=== PATIENT | female | born 1960 | race Caucasian/White ===

== ENCOUNTER 2018-03-02 15:54 | Emergency (ER) | payer MEDICARE, OTHER ==
[~2018-03-02] VITALS: Ht 157.5 cm; Wt 79.4 kg
--- NOTE | 2018-03-02 16:10 | ED Lower Extremity ---
General Chief Complaint: Lower Extremity Stated Complaint: R ANKLE PAIN Source: patient Exam Limitations: no limitations History of Present Illness Date Seen by Provider: Mar 02, 2018 Time Seen by Provider: 16:10 Initial Comments Patient is a 57-year-old female who presents to the emergency room with complaints of right ankle pain. She reports that she cannot recall an injury but does state that she was doing exercises for plantar fasciitis last night when she woke this morning the ankle was painful to walk on. She reports taking prescribed oxycodone that she has for pancreatitis flareups for the pain with moderate relief. Onset: this morning Pain/Injury Location: right ankle Method of Injury: unknown Modifying Factors: Improves With Cold Therapy, Improves With Immobilization; Worse With Jarring, Worse With Movement; Improves With Pain Medication, Improves With Rest Allergies and Home Medications Allergies Coded Allergies: No Known Drug Allergies (Unverified , 03/02/18) Patient Home Medication List Home Medication List Reviewed: Yes Constitutional: see HPI; No chills EENTM: see HPI; No ear discharge, No hearing loss, No blurred vision Respiratory: see HPI; No cough, No dyspnea on exertion Cardiovascular: see HPI; No chest pain Gastrointestinal: see HPI; No abdominal pain Genitourinary: see HPI; No decreased output, No discharge Musculoskeletal: joint pain, joint swelling (right ankle) Skin: see HPI; No change in color Psychiatric/Neurological: See HPI; Denies Anxiety All Other Systems Reviewed Negative Unless Noted: Yes Past Pxbpwos-Arrdfb-Cpnfmt Hx Past Med/Social Hx: Reviewed Nursing Past Med/Soc Hx Patient Social History Recent Foreign Travel: No Contact w/Someone Who Travel: No Family Medical History Reviewed Nursing Family Hx Physical Exam Vital Signs Vital Signs - First Documented 03/02/18 15:57 Temp 97.6 Pulse 84 Resp 14 B/P (MAP) 134/76 (95) O2 Delivery Room Air Capillary Refill : General Appearance: WD/WN, no apparent distress HEENT: PERRL/EOMI, normal ENT inspection, TMs normal Neck: full range of motion, supple, normal inspection Cardiovascular: regular rate, rhythm, no edema, no gallop, no JVD Respiratory: chest non-tender, lungs clear, normal breath sounds Gastrointestinal: normal bowel sounds, non tender, soft Back: normal inspection, no CVA tenderness, no vertebral tenderness Hips: bilateral hip non-tender, bilateral hip normal inspection, bilateral hip normal range of motion, bilateral hip no evidence of injury Legs: bilateral leg non-tender, bilateral leg normal inspection, bilateral leg normal range of motion, bilateral leg no evidence of injury Knees: bilateral knee non-tender, bilateral knee normal inspection, bilateral knee normal range of motion, bilateral knee no evidence of injury Ankles: left ankle non-tender, left ankle normal inspection, left ankle normal range of motion, left ankle no evidence of injury; right ankle pain, right ankle soft tissue tenderness, right ankle swelling, right ankle other (normal capillary refill, normal sensation, increased pain with extension and flexion.) Feet: bilateral foot non-tender, bilateral foot normal inspection, bilateral foot normal range of motion, bilateral foot no evidence of injury Neurologic/Tendon: normal sensation, normal motor functions, normal tendon functions, responds to pain, no evidence tendon injury; No motor deficit, No sensory deficit Neurologic/Psychiatric: alert, normal mood/affect, oriented x 3 Skin: normal color, warm/dry Lymphatic: no adenopathy Progress/Results/Core Measures Results/Orders Vital Signs/I&O 03/02/18 15:57 Temp 97.6 Pulse 84 Resp 14 B/P (MAP) 134/76 (95) O2 Delivery Room Air Diagnostic Imaging Diagonstic Imaging: Xray Plain Films/CT/US/NM/MRI: ankle Comments NAME: MOSES ZUNIGA MED REC#: [id number] PT STATUS: REG ER : 1960 PHYSICIAN: TIANNA NIELSEN MD ADMIT DATE: 03/02/18/ER Draft Date of Exam:03/02/18 ANKLE, RIGHT, 3 VIEWS Indication: Right ankle injury with pain and swelling. Discussion: Three views of the right ankle were obtained. The ankle mortise is symmetric. Small plantar calcaneal enthesophyte. No fracture or dislocation. Soft tissues are unremarkable. Impression: Negative right ankle. Dictated on workstation # [id number] Dict: 03/02/18 1618 Trans: 03/02/18 1620 [facility] [id number] Interpreted by: DIMITRI GREEN MD Electronically signed by: Time of Consult: 16:29 Departure Impression Primary Impression: Sprain and strain of ankle Additional Impression: Sprain and strain of foot Disposition: 01 HOME, SELF-CARE Condition: Stable/Unchanged Departure-Patient Inst. Decision time for Depature: 16:43 Referrals: ALYSSA PACK MD, JOSEPH M DO Patient Instructions: Ankle Sprain (DC) Add. Discharge Instructions: Continue you home pain medication and you may use ibuprofen in addition to. Continue to use ice packs, crutches, sujatha bandage, and the air stirrup as needed for support and pain relief. Follow-up with your primary care provider or [facility] within 1 week. Call tomorrow morning for appointment time. Return back to the emergency room for increased pain, numbness or tingling sensation in the foot, or any other concerns as needed. All discharge instructions reviewed with patient and/or family. Voiced understanding. YVES FROST STUDENT Mar 02, 2018 16:10
--- NOTE | 2018-03-02 16:20 | Diagnostic Imaging Report ---
Indication: Right ankle injury with pain and swelling. Discussion: Three views of the right ankle were obtained. The ankle mortise is symmetric. Small plantar calcaneal enthesophyte. No fracture or dislocation. Soft tissues are unremarkable. Impression: Negative right ankle. Dictated by: Dictated on workstation # [id number]
[2018-03-02 16:57] VITALS: BP 134/76
== END 2018-03-02 16:57 | disposition home or self-care (01) ==
LOC: EDUNIT# 15:54 → ER 15:55
DX: S93.401A Sprain of unspecified ligament of right ankle, initial encounter (principal); S93.601A Unspecified sprain of right foot, initial encounter; X58.XXXA Exposure to other specified factors, initial encounter
CPT/HCPCS: 73610

== ENCOUNTER 2018-11-01 17:14 | Emergency (ER) | payer MEDICARE, OTHER ==
[~2018-11-01] VITALS: Ht 157.5 cm; Wt 89.8 kg
--- NOTE | 2018-11-01 17:42 | ED Chest Pain ---
General Chief Complaint: Chest Pain Stated Complaint: CHEST PAIN/TIGHTNESS/SOB Source: patient Exam Limitations: no limitations History of Present Illness Date Seen by Provider: Nov 01, 2018 Time Seen by Provider: 17:39 Initial Comments 58-year-old female who presents to the emergency room with complaints of chest pain, chest tightness, and shortness of breath that started yesterday around 1700. She was seen and evaluated at [facility] [place]. She reports that she had the diagnosis of bronchitis and pleurisy and was put on steroids and antibiotics. She denies lightheadedness, nausea, vomiting. Timing/Duration: 1-2 days Severity/Quality: tightness Location: substernal Radiation: shoulders (left) Prior CP/Workup: no prior cardiac workup ASA po HOTEL RESERVATION AGENT: No NTG SL HOTEL RESERVATION AGENT: No Associated Symptoms: shortness of breath Allergies and Home Medications Allergies Coded Allergies: No Known Drug Allergies (Unverified , 03/02/18) Patient Home Medication List Home Medication List Reviewed: Yes Review of Systems Review of Systems Constitutional: no symptoms reported, see HPI Respiratory: See HPI, Shortness of Air Cardiovascular: See HPI, Chest Pain All Other Systems Reviewed Negative Unless Noted: Yes Past Rpkdlmx-Acjcov-Zjnfem Hx Patient Social History 2nd Hand Smoke Exposure: No Recent Foreign Travel: No Contact w/Someone Who Travel: No Recent Hopitalizations: No Past Medical History Respiratory: No Cardiac: No Neurological: No Genitourinary: No Gastrointestinal: Yes (CHRONIC PANCREATITIS) Pancreatitis Endocrine: No HEENT: No Cancer: No Psychosocial: No Integumentary: No Blood Disorders: No Physical Exam Vital Signs Vital Signs - First Documented 11/01/18 17:22 Pulse 93 Resp 14 B/P (MAP) 147/77 (100) Pulse Ox 98 O2 Delivery Nasal Cannula O2 Flow Rate 2.00 Capillary Refill : Height, Weight, BMI Height: 5'2.00" Weight: 175lbs. oz. 79.902407ak; BMI Method:Stated Progress/Results/Core Measures Results/Orders Lab Results Laboratory Tests Test 11/01/18 17:51 11/01/18 18:45 11/01/18 20:48 Range/Units White Blood Count 8.2 4.3-11.0 10^3/uL Red Blood Count 5.11 4.35-5.85 10^6/uL Hemoglobin 14.1 11.5-16.0 G/DL Hematocrit 42 35-52 % Mean Corpuscular Volume 83 80-99 FL Mean Corpuscular Hemoglobin 28 25-34 PG Mean Corpuscular Hemoglobin Concent 33 32-36 G/DL Red Cell Distribution Width 14.5 10.0-14.5 % Platelet Count 435 H 130-400 10^3/uL Mean Platelet Volume 9.6 7.4-10.4 FL Neutrophils (%) (Auto) 81 H 42-75 % Lymphocytes (%) (Auto) 18 12-44 % Monocytes (%) (Auto) 1 0-12 % Eosinophils (%) (Auto) 0 0-10 % Basophils (%) (Auto) 0 0-10 % Neutrophils # (Auto) 6.6 1.8-7.8 X 10^3 Lymphocytes # (Auto) 1.4 1.0-4.0 X 10^3 Monocytes # (Auto) 0.1 0.0-1.0 X 10^3 Eosinophils # (Auto) 0.0 0.0-0.3 10^3/uL Basophils # (Auto) 0.0 0.0-0.1 10^3/uL B-Type Natriuretic Peptide < 10.0 <100.0 PG/ML Prothrombin Time 12.7 12.2-14.7 SEC INR Comment 1.0 0.8-1.4 Activated Partial Thromboplast Time 25 24-35 SEC D-Dimer 0.33 0.00-0.49 UG/ML Sodium Level 139 135-145 MMOL/L Potassium Level 3.7 3.6-5.0 MMOL/L Chloride Level 109 H 98-107 MMOL/L Carbon Dioxide Level 19 L 21-32 MMOL/L Anion Gap 11 5-14 MMOL/L Blood Urea Nitrogen 9 7-18 MG/DL Creatinine 0.73 0.60-1.30 MG/DL Estimat Glomerular Filtration Rate > 60 BUN/Creatinine Ratio 12 Glucose Level 121 H 70-105 MG/DL Calcium Level 9.5 8.5-10.1 MG/DL Corrected Calcium 9.3 8.5-10.1 MG/DL Magnesium Level 2.3 1.8-2.4 MG/DL Total Bilirubin 0.4 0.1-1.0 MG/DL Aspartate Amino Transf (AST/SGOT) 37 H 5-34 U/L Alanine Aminotransferase (ALT/SGPT) 32 0-55 U/L Alkaline Phosphatase 73 40-136 U/L Myoglobin 22.1 10.0-92.0 NG/ML Troponin I < 0.028 < 0.028 <0.028 NG/ML Total Protein 7.2 6.4-8.2 GM/DL Albumin 4.3 3.2-4.5 GM/DL Amylase Level 82 25-125 U/L Lipase 165 H 8-78 U/L My Orders Orders - YVES FROST Cbc With Automated Diff (11/01/18 17:35) Magnesium (11/01/18 17:35) Chest 1 View, Ap/Pa Only (11/01/18 17:35) Ekg Tracing (11/01/18 17:35) Cardiac Profile 1 (11/01/18 17:35) Comprehensive Metabolic Panel (11/01/18 17:35) Myoglobin Serum (11/01/18 17:35) Protime With Inr (11/01/18 17:35) Partial Thromboplastin Time (11/01/18 17:35) O2 (11/01/18 17:35) Monitor-Rhythm Ecg Trace Only (11/01/18 17:35) Lipid Panel (11/02/18 06:00) Aspirin Chewable Tablet (Baby Aspirin Ch (11/01/18 17:45) Nitroglycerin 0.4 Mg Btl 25's (Nitrostat (11/01/18 17:45) Saline Lock/Iv-Start (11/01/18 17:35) Lipase (11/01/18 17:35) Amylase (11/01/18 17:35) BNP (11/01/18 17:35) Ondansetron Injection (Zofran Injectio (11/01/18 17:45) Fibrin Degradation Products (11/01/18 17:51) Morphine Injection (Morphine Injection (11/01/18 19:45) Troponin I (11/01/18 20:11) Medications Given in ED Current Medications Medications Dose Ordered Sig/Luba Route Start Time Stop Time Status Last Admin Dose Admin Aspirin 324 mg ONCE ONCE PO 11/01/18 17:45 11/01/18 17:46 DC 11/01/18 18:17 324 MG Morphine Sulfate 4 mg ONCE ONCE IVP 11/01/18 19:45 11/01/18 19:46 DC 11/01/18 19:50 4 MG Ondansetron HCl 4 mg STK-MED ONCE .ROUTE 11/01/18 17:45 11/01/18 17:50 DC 11/01/18 18:17 4 MG Vital Signs/I&O 11/01/18 11/01/18 17:22 17:22 Pulse 93 Resp 14 B/P (MAP) 147/77 (100) Pulse Ox 98 98 O2 Delivery Nasal Cannula Room Air O2 Flow Rate 2.00 Departure Impression Primary Impression: Pleurisy Additional Impressions: Pleuritic chest pain Chronic pancreatitis Disposition: HOME, SELF-CARE Condition: Stable/Unchanged Departure-Patient Inst. Decision time for Depature: 21:50 Referrals: NO,LOCAL PHYSICIAN (PCP/Family) Primary Care Physician Patient Instructions: Chronic Pancreatitis (DC), Pleuritic Chest Pain (DC) Add. Discharge Instructions: Clear liquid diet until you follow up with your doctor. Take medications as directed. Follow-up with your primary care provider within 1 week for a recheck. Return back to the emergency room for worsening symptoms or concerns as needed. All discharge instructions reviewed with patient and/or family. Voiced understanding. Scripts Ondansetron HCl (Zofran) 4 Mg Tab 4 MG PO Q4H PRN for NAUSEA/VOMITING-1ST LINE, #14 TAB Prov: YVES FROST 11/01/18 Oxycodone HCl (Oxycodone HCl) 5 Mg Capsule 5 MG PO Q6H, #10 CAP Prov: YVES FROST 11/01/18 YVES FROST Nov 01, 2018 17:42
[2018-11-01] MEDS ORDERED: NITROGLYCERIN 0.4 MG SL TABS BTL 25'S SL PRN (17:45)
[2018-11-01] MEDS ORDERED: ASPIRIN 81 MG CHEW (CHILDREN'S ASA) PO ONE (17:45)
[2018-11-01] MEDS ORDERED: ONDANSETRON 4 MG/2 ML (SDV) Z0FRAN ONE (17:45)
[2018-11-01 17:57] LABS: BASOPHILS % (AUTO) 0 % (0-10); EOSINOPHILS % (AUTO) 0 % (0-10); HEMATOCRIT 42 % (35-52); HEMOGLOBIN 14.1 G/DL (11.5-16.0); LYMPHOCYTES # (AUTO) 1.4 X 10^3 (1.0-4.0); LYMPHOCYTES % (AUTO) 18 % (12-44); MEAN CORPUSCULAR HEMOGLOBIN 28 PG (25-34); MEAN CORPUSCULAR HGB CONC 33 G/DL (32-36); MEAN CORPUSCULAR VOLUME 83 FL (80-99); MEAN PLATELET VOLUME 9.6 FL (7.4-10.4); MONOCYTES # (AUTO) 0.1 X 10^3 (0.0-1.0); MONOCYTES % (AUTO) 1 % (0-12); NEUTROPHILS # (AUTO) 6.6 X 10^3 (1.8-7.8); NEUTROPHILS % (AUTO) 81 % (42-75); PLATELET COUNT 435 10^3/uL (130-400); RED CELL DISTRIBUTION WIDTH 14.5 % (10.0-14.5); WHITE BLOOD COUNT 8.2 10^3/uL (4.3-11.0)
--- NOTE | 2018-11-01 18:32 | Diagnostic Imaging Report ---
CHEST 1 VIEW, AP/PA ONLY Indication: Chest pain cough Comparison: None available. Findings: No focal airspace disease in the visualized lungs. Please note that the posterior lower lobes are poorly evaluated by portable radiography. No pleural effusion or pneumothorax. Normal cardiomediastinal silhouette. Impression: No acute cardiopulmonary process by portable radiography. Dictated by: Dictated on workstation # [id number]
[2018-11-01 19:03] LABS: PROTHROMBIN TIME PATIENT 12.7 SEC (12.2-14.7)
[2018-11-01 19:05] LABS: FIBRIN DEGRADATION PRODUCTS 0.33 UG/ML (0.00-0.49)
[2018-11-01 19:13] LABS: ALANINE AMINOTRANSFERASE 32 U/L (0-55); ALBUMIN 4.3 GM/DL (3.2-4.5); ALKALINE PHOSPHATASE 73 U/L (40-136); AMYLASE 82 U/L (25-125); BILIRUBIN,TOTAL 0.4 MG/DL (0.1-1.0); BUN/CREATININE RATIO 12; CALCIUM 9.5 MG/DL (8.5-10.1); CARBON DIOXIDE 19 MMOL/L (21-32); CHLORIDE 109 MMOL/L (98-107); CREATININE SERUM 0.73 MG/DL (0.60-1.30); GFR ESTIMATED > 60; GLUCOSE 121 MG/DL (70-105); LIPASE 165 U/L (8-78); MAGNESIUM 2.3 MG/DL (1.8-2.4); POTASSIUM 3.7 MMOL/L (3.6-5.0); SODIUM 139 MMOL/L (135-145); TOTAL PROTEIN 7.2 GM/DL (6.4-8.2)
[2018-11-01 19:21] LABS: MYOGLOBIN SERUM 22.1 NG/ML (10.0-92.0)
[2018-11-01] MEDS ORDERED: morphine INJ 10 MG/ML 1ML (SYR OR VIAL) IVP ONE (19:45)
[2018-11-01] MEDS ORDERED: ONDN4T PO (21:55)
[2018-11-01] MEDS ORDERED: OXYC5CAP18 PO (21:55)
[2018-11-01] MEDS ORDERED: KETOROLAC 30 MG/ML VIAL IVP ONE (22:00)
[2018-11-01 22:14] VITALS: BP 102/54
== END 2018-11-01 22:21 | disposition home or self-care (01) ==
LOC: EDUNIT# 17:14 → ER 17:16
DX: R07.81 Pleurodynia (principal); K86.1 Other chronic pancreatitis; Z87.09 Personal history of other diseases of the respiratory system; Z87.19 Personal history of other diseases of the digestive system
CPT/HCPCS: 36415; 71045; 80053; 82150; 83690; 83735; 83874; 83880; 84484; 85025; 85379; 85610; 85730; 93041

== ENCOUNTER → 2019-05-21 | Outpatient (CLI) | payer MEDICARE, OTHER ==
[~2019-05-21] MED LIST: ONDN4T PO; OXC5T PO
--- NOTE | 2019-05-21 14:08 | Diagnostic Imaging Report ---
INDICATION: Right knee pain. COMPARISON: None. FINDINGS: Three views of the right knee joint demonstrate no acute fracture or dislocation. No focal osseous lesions are seen. No significant joint effusion is seen. The surrounding soft tissue structures are unremarkable. There are no radiopaque foreign bodies. IMPRESSION: 1. No acute fractures or dislocations of the right knee joint. Dictated by: Dictated on workstation # [id number]
== END ==
LOC: RAD FS 13:41
PROVIDERS: ATTEND Nurse Practitioner
DX: M22.41 Chondromalacia patellae, right knee (principal)
CPT/HCPCS: 73562

== ENCOUNTER 2019-06-23 21:57 | Emergency (ER) | payer MEDICARE, OTHER ==
[~2019-06-23] VITALS: Ht 157.4 cm; Wt 81.0 kg
[2019-06-23] MEDS ORDERED: HALOPERIDOL 5 MG/ML (HALDOL) AMP IM ONE ×2 (22:15→23:15)
[2019-06-23] MEDS ORDERED: KETOROLAC 30 MG/ML VIAL IVP ONE (22:15)
[2019-06-23] MEDS: NS IV 1000 ML 1,000 ML IV SCH ×2 (22:18→23:06)
[2019-06-23 22:39] LABS: HEMATOCRIT 38 % (35-52); HEMOGLOBIN 12.9 G/DL (11.5-16.0); MEAN CORPUSCULAR HEMOGLOBIN 27 PG (25-34); WHITE BLOOD COUNT 12.4 10^3/uL (4.3-11.0)
[2019-06-23 22:40] LABS: BASOPHILS # (AUTO) 0.1 10^3/uL (0.0-0.1); BASOPHILS % (AUTO) 0 % (0-10); EOSINOPHILS # (AUTO) 0.1 10^3/uL (0.0-0.3); EOSINOPHILS % (AUTO) 1 % (0-10); LYMPHOCYTES # (AUTO) 3.6 X 10^3 (1.0-4.0); LYMPHOCYTES % (AUTO) 29 % (12-44); MEAN CORPUSCULAR HGB CONC 34 G/DL (32-36); MEAN CORPUSCULAR VOLUME 82 FL (80-99); MEAN PLATELET VOLUME 9.9 FL (7.4-10.4); MONOCYTES # (AUTO) 0.5 X 10^3 (0.0-1.0); MONOCYTES % (AUTO) 4 % (0-12); NEUTROPHILS # (AUTO) 8.1 X 10^3 (1.8-7.8); NEUTROPHILS % (AUTO) 65 % (42-75); PLATELET COUNT 417 10^3/uL (130-400)
[2019-06-23 23:03] LABS: BUN/CREATININE RATIO 18; CALCIUM 9.8 MG/DL (8.5-10.1); CARBON DIOXIDE 22 MMOL/L (21-32); CHLORIDE 104 MMOL/L (98-107); CREATININE SERUM 0.85 MG/DL (0.60-1.30); GFR ESTIMATED > 60; GLUCOSE 153 MG/DL (70-105); POTASSIUM 3.3 MMOL/L (3.6-5.0); SODIUM 142 MMOL/L (135-145)
[2019-06-23 23:04] LABS: ALANINE AMINOTRANSFERASE 50 U/L (0-55); ALBUMIN 4.2 GM/DL (3.2-4.5); ALKALINE PHOSPHATASE 93 U/L (40-136); BILIRUBIN,TOTAL 0.3 MG/DL (0.1-1.0); LIPASE 46 U/L (8-78)
--- NOTE | 2019-06-23 23:14 | NUR ---
VN=584/78, PULSE 92 RESP. 16, SATS 100% RA
--- NOTE | 2019-06-23 23:26 | ED Abdominal Pain ---
General Chief Complaint: Abdominal/GI Problems Stated Complaint: VOMITING Nursing Triage Note: PT. WAS BROUGHT IN BY EMS WITH THE C/O ABD. PAIN. PT. HAS A HISTORY OF PANCREATITIS, AND IS HAVING NAUSEA AND VOMITING. Sepsis Screen: No Definite Risk Exam Limitations: No Limitations History of Present Illness Date Seen by Provider: Jun 23, 2019 Time Seen by Provider: 22:45 Initial Comments Patient is a 59 year old female with history of chronic pancreatitis who presents with epigastric pain starting 1 hour prior to the ED arrival. Pain is dull, moderate to severe and worse palpation. No fever, chills sweats, chest pain or shortness or breath. Patient took Zofran prior to ED arrival without improvement. Symptoms are typical of previous episodes of pancreatitis. No other acute symptoms or complaints. Previous cholecystectomy Timing/Duration: 1 Hour Severity/Quality: Moderate Location: Epigastric Radiation: Back Modifying Factors: Improves With Palpation Allergies and Home Medications Allergies Coded Allergies: promethazine (Verified Allergy, Unknown, 06/23/19) Home Medications Ondansetron HCl 4 Mg Tab, 4 MG PO Q4H PRN for NAUSEA/VOMITING-1ST LINE Prescribed by: YVES FROST on 11/01/182154 Oxycodone Hcl 5 Mg Capsule, 5 MG PO Q6H Prescribed by: YVES FROST on 11/01/182154 Patient Home Medication List Home Medication List Reviewed: Yes Review of Systems Review of Systems Constitutional: see HPI EENTM: See HPI Respiratory: Cough Cardiovascular: See HPI Gastrointestinal: See HPI Genitourinary: See HPI Musculoskeletal: back pain Skin: see HPI Endocrine: See HPI Past Gqvhtwh-Wcdjkc-Jtvlbs Hx Past Med/Social Hx: Reviewed Nursing Past Med/Soc Hx Patient Social History 2nd Hand Smoke Exposure: No Recent Foreign Travel: No Contact w/Someone Who Travel: No Recent Infectious Disease Expo: No Recent Hopitalizations: No Physical Abuse: No Sexual Abuse: No Mistreated: No Fear: No Seasonal Allergies Seasonal Allergies: No Past Medical History Surgeries: Yes Section, Gallbladder, Tubal Ligation Respiratory: No Cardiac: No Neurological: No Genitourinary: No Gastrointestinal: Yes (CHRONIC PANCREATITIS) Pancreatitis Endocrine: No HEENT: No Cancer: No Psychosocial: No Integumentary: No Blood Disorders: No Physical Exam Vital Signs Vital Signs - First Documented 06/23/19 22:00 Temp 36.3 Pulse 110 Resp 18 B/P (MAP) 178/77 (110) Pulse Ox 99 O2 Delivery Room Air Capillary Refill : Less Than 3 Seconds Height/Weight/BMI Height: 5'2.00" Weight: 198lbs. oz. 89.806451hv; 32.00 BMI Method:Stated General Appearance: WD/WN, no apparent distress HEENT: PERRL/EOMI Neck: supple Respiratory: chest non-tender, lungs clear Cardiovascular: regular rate, rhythm Gastrointestinal: soft, tenderness (epigastric pain, ttp) Extremities: normal range of motion, non-tender Back: normal inspection, no CVA tenderness Neurologic/Psychiatric: normal mood/affect, oriented x 3 Skin: normal color Focused Exam Sepsis Stage: Ruled Out Progress/Results/Core Measures Results/Orders Lab Results Laboratory Tests Test 06/23/19 22:30 Range/Units White Blood Count 12.4 H 4.3-11.0 10^3/uL Red Blood Count 4.70 4.35-5.85 10^6/uL Hemoglobin 12.9 11.5-16.0 G/DL Hematocrit 38 35-52 % Mean Corpuscular Volume 82 80-99 FL Mean Corpuscular Hemoglobin 27 25-34 PG Mean Corpuscular Hemoglobin Concent 34 32-36 G/DL Red Cell Distribution Width 14.0 10.0-14.5 % Platelet Count 417 H 130-400 10^3/uL Mean Platelet Volume 9.9 7.4-10.4 FL Neutrophils (%) (Auto) 65 42-75 % Lymphocytes (%) (Auto) 29 12-44 % Monocytes (%) (Auto) 4 0-12 % Eosinophils (%) (Auto) 1 0-10 % Basophils (%) (Auto) 0 0-10 % Neutrophils # (Auto) 8.1 H 1.8-7.8 X 10^3 Lymphocytes # (Auto) 3.6 1.0-4.0 X 10^3 Monocytes # (Auto) 0.5 0.0-1.0 X 10^3 Eosinophils # (Auto) 0.1 0.0-0.3 10^3/uL Basophils # (Auto) 0.1 0.0-0.1 10^3/uL Sodium Level 142 135-145 MMOL/L Potassium Level 3.3 L 3.6-5.0 MMOL/L Chloride Level 104 98-107 MMOL/L Carbon Dioxide Level 22 21-32 MMOL/L Anion Gap 16 H 5-14 MMOL/L Blood Urea Nitrogen 15 7-18 MG/DL Creatinine 0.85 0.60-1.30 MG/DL Estimat Glomerular Filtration Rate > 60 BUN/Creatinine Ratio 18 Glucose Level 153 H 70-105 MG/DL Calcium Level 9.8 8.5-10.1 MG/DL Corrected Calcium 9.6 8.5-10.1 MG/DL Total Bilirubin 0.3 0.1-1.0 MG/DL Aspartate Amino Transf (AST/SGOT) 44 H 5-34 U/L Alanine Aminotransferase (ALT/SGPT) 50 0-55 U/L Alkaline Phosphatase 93 40-136 U/L Total Protein 7.0 6.4-8.2 GM/DL Albumin 4.2 3.2-4.5 GM/DL Lipase 46 8-78 U/L Serum Alcohol < 10 <10 MG/DL My Orders Orders - AMANDA SMITH DO Cbc With Automated Diff (06/23/19 22:08) Comprehensive Metabolic Panel (06/23/19 22:08) Lipase (06/23/19 22:08) Ua Culture If Indicated (06/23/19 22:08) Haloperidol Injection (Haldol Injectio (06/23/19 22:15) Ns Iv 1000 Ml (Sodium Chloride 0.9%) (06/23/19 22:15) Ketorolac Injection (Toradol Injection) (06/23/19 22:15) Alcohol (06/23/19 22:57) Haloperidol Injection (Haldol Injectio (06/23/19 23:15) Medications Given in ED Current Medications Medications Dose Ordered Sig/Luba Route Start Time Stop Time Status Last Admin Dose Admin Haloperidol Lactate 2.5 mg ONCE ONCE IM 06/23/19 22:15 06/23/19 22:16 DC 06/23/19 22:17 2.5 MG Haloperidol Lactate 2.5 mg ONCE ONCE IM 06/23/19 23:15 06/23/19 23:16 DC 06/23/19 23:06 2.5 MG Ketorolac Tromethamine 30 mg ONCE ONCE IVP 06/23/19 22:15 06/23/19 22:16 DC 06/23/19 22:15 30 MG Vital Signs/I&O 06/23/19 22:00 Temp 36.3 Pulse 110 Resp 18 B/P (MAP) 178/77 (110) Pulse Ox 99 O2 Delivery Room Air Blood Pressure Mean: 110 Departure Communication (Admissions) Labs reviewed. Symptoms significantly improved with treatment. Patient resting comfortably time of discharge. Recommend continued supportive care with PCP follow-up. Patient has nausea medications available to her at home. Impression Primary Impression: Abdominal pain Additional Impressions: Chronic pancreatitis Nausea and vomiting Disposition: HOME, SELF-CARE Condition: Stable Departure-Patient Inst. Referrals: MIMA ROSAS MD (PCP/Family) Primary Care Physician Patient Instructions: Pancreatitis, Acute Abdomen (Belly Pain), Adult (DC) Add. Discharge Instructions: Continue home nausea medications. Drink clear liquids only for the next 12-18 hours then gradually increase to bland diet as tolerated. Follow-up with your PCP for further management. All discharge instructions reviewed with patient and/or family. Voiced understanding. AMANDA SMITH DO Jun 23, 2019 23:26
--- NOTE | 2019-06-23 23:40 | NUR ---
PT. REPORTED FEELING BETTER. NO MORE NAUSEA.
[2019-06-23 23:49] VITALS: BP 178/77
== END 2019-06-23 23:52 | disposition home or self-care (01) ==
LOC: EDUNIT# 21:57 → ER FS 21:57
DX: K86.1 Other chronic pancreatitis (principal); Z90.49 Acquired absence of other specified parts of digestive tract; Z88.8 Allergy status to other drugs, medicaments and biological substances; Z98.51 Tubal ligation status; Z87.19 Personal history of other diseases of the digestive system
CPT/HCPCS: 36415; 80053; 80320; 83690; 85025; 96361; 96372; 96374

== ENCOUNTER 2019-09-15 23:52 | Inpatient (IN) | payer MEDICARE, OTHER ==
[~2019-09-15] VITALS: Ht 159.9 cm; Wt 89.5 kg
[2019-09-16] MEDS ORDERED: NS IV 1000 ML 1,000 ML IV SCH
[2019-09-16 00:14] LABS: HEMATOCRIT 39 % (35-52); HEMOGLOBIN 12.8 G/DL (11.5-16.0); MEAN CORPUSCULAR HEMOGLOBIN 28 PG (25-34); MEAN CORPUSCULAR VOLUME 84 FL (80-99); WHITE BLOOD COUNT 12.2 10^3/uL (4.3-11.0)
[2019-09-16 00:15] LABS: BASOPHILS # (AUTO) 0.1 10^3/uL (0.0-0.1); BASOPHILS % (AUTO) 0 % (0-10); EOSINOPHILS # (AUTO) 0.2 10^3/uL (0.0-0.3); EOSINOPHILS % (AUTO) 1 % (0-10); LYMPHOCYTES # (AUTO) 4.7 X 10^3 (1.0-4.0); LYMPHOCYTES % (AUTO) 39 % (12-44); MEAN CORPUSCULAR HGB CONC 33 G/DL (32-36); MEAN PLATELET VOLUME 9.6 FL (7.4-10.4); MONOCYTES # (AUTO) 0.7 X 10^3 (0.0-1.0); MONOCYTES % (AUTO) 6 % (0-12); NEUTROPHILS # (AUTO) 6.5 X 10^3 (1.8-7.8); NEUTROPHILS % (AUTO) 53 % (42-75); PLATELET COUNT 411 10^3/uL (130-400); RED CELL DISTRIBUTION WIDTH 14.6 % (10.0-14.5)
[2019-09-16] MEDS ORDERED: KETOROLAC 30 MG/ML VIAL IVP ONE (00:15)
[2019-09-16] MEDS ORDERED: ONDANSETRON 4 MG/2 ML (SDV) Z0FRAN IVP ONE (00:15)
[2019-09-16] MEDS ORDERED: HALOPERIDOL 5 MG/ML (HALDOL) AMP IV ONE (00:15)
--- NOTE | 2019-09-16 00:15 | ED Abdominal Pain ---
General Chief Complaint: Abdominal/GI Problems Stated Complaint: abd pain Source of Information: Patient Exam Limitations: No Limitations History of Present Illness Date Seen by Provider: Sep 16, 2019 Time Seen by Provider: 00:12 Initial Comments Patient complains of sharp stabbing epigastric and left upper quadrant pain for the past hour. Symptoms are similar to her chronic pancreatitis attacks. She has vomited multiple times. No fevers or chills. No hematemesis or melena. Denies bad food drug or alcohol ingestion. She has had a cholecystectomy. Timing/Duration: 1 Hour Severity/Quality: Severe Location: LUQ, Epigastric Radiation: No Radiation Activities at Onset: None Allergies and Home Medications Allergies Coded Allergies: promethazine (Verified Allergy, Unknown, 06/23/19) Home Medications Ondansetron HCl 4 Mg Tab, 4 MG PO Q4H PRN for NAUSEA/VOMITING-1ST LINE Prescribed by: YVES FROST on 11/01/182154 Oxycodone Hcl 5 Mg Capsule, 5 MG PO Q6H Prescribed by: YVES FROST on 11/01/182154 Patient Home Medication List Home Medication List Reviewed: Yes Review of Systems Review of Systems Constitutional: No fever; malaise EENTM: No Symptoms Reported Respiratory: No Symptoms Reported Cardiovascular: Denies Chest Pain Gastrointestinal: Abdominal Pain, Nausea, Vomiting Musculoskeletal: no symptoms reported; No back pain Skin: no symptoms reported Psychiatric/Neurological: Anxiety Endocrine: No Symptoms Reported All Other Systems Reviewed Negative Unless Noted: Yes Past Pxyuvib-Zljxji-Zuljmr Hx Patient Social History 2nd Hand Smoke Exposure: No Recent Foreign Travel: No Contact w/Someone Who Travel: No Recent Hopitalizations: No Seasonal Allergies Seasonal Allergies: No Past Medical History Surgeries: Yes Section, Gallbladder, Tubal Ligation Respiratory: No Cardiac: No Neurological: No Genitourinary: No Gastrointestinal: Yes (CHRONIC PANCREATITIS) Pancreatitis Endocrine: No HEENT: No Cancer: No Psychosocial: No Integumentary: No Blood Disorders: No Physical Exam Vital Signs Vital Signs - First Documented 09/16/19 00:16 Temp 35.8 Pulse 73 Resp 18 B/P (MAP) 113/46 (68) Pulse Ox 98 O2 Delivery Room Air Capillary Refill : Height/Weight/BMI Height: 5'2.00" Weight: 198lbs. oz. 89.330304yk; 32.00 BMI Method:Stated General Appearance: WD/WN, severe distress (retching) HEENT: PERRL/EOMI, pharynx normal Neck: supple Respiratory: lungs clear, normal breath sounds Cardiovascular: regular rate, rhythm, no edema Gastrointestinal: soft; No distended, No guarding, No rebound; tenderness (tender in epigastrium and left upper quadrant) Extremities: normal inspection Neurologic/Psychiatric: alert, normal mood/affect Skin: normal color, warm/dry Focused Exam Lactate Level 09/15/19 00:09: Lactic Acid Level 1.72 Lactic Acid Level Laboratory Tests Test 09/15/19 00:09 Lactic Acid Level 1.72 MMOL/L (0.50-2.00) Progress/Results/Core Measures Results/Orders Lab Results Laboratory Tests Test 09/15/19 00:01 09/15/19 00:09 09/15/19 00:50 Range/Units White Blood Count 12.2 H 4.3-11.0 10^3/uL Red Blood Count 4.63 4.35-5.85 10^6/uL Hemoglobin 12.8 11.5-16.0 G/DL Hematocrit 39 35-52 % Mean Corpuscular Volume 84 80-99 FL Mean Corpuscular Hemoglobin 28 25-34 PG Mean Corpuscular Hemoglobin Concent 33 32-36 G/DL Red Cell Distribution Width 14.6 H 10.0-14.5 % Platelet Count 411 H 130-400 10^3/uL Mean Platelet Volume 9.6 7.4-10.4 FL Neutrophils (%) (Auto) 53 42-75 % Lymphocytes (%) (Auto) 39 12-44 % Monocytes (%) (Auto) 6 0-12 % Eosinophils (%) (Auto) 1 0-10 % Basophils (%) (Auto) 0 0-10 % Neutrophils # (Auto) 6.5 1.8-7.8 X 10^3 Lymphocytes # (Auto) 4.7 H 1.0-4.0 X 10^3 Monocytes # (Auto) 0.7 0.0-1.0 X 10^3 Eosinophils # (Auto) 0.2 0.0-0.3 10^3/uL Basophils # (Auto) 0.1 0.0-0.1 10^3/uL Sodium Level 143 135-145 MMOL/L Potassium Level 3.9 3.6-5.0 MMOL/L Chloride Level 106 98-107 MMOL/L Carbon Dioxide Level 20 L 21-32 MMOL/L Anion Gap 17 H 5-14 MMOL/L Blood Urea Nitrogen 11 7-18 MG/DL Creatinine 0.79 0.60-1.30 MG/DL Estimat Glomerular Filtration Rate > 60 BUN/Creatinine Ratio 14 Glucose Level 157 H 70-105 MG/DL Calcium Level 9.1 8.5-10.1 MG/DL Corrected Calcium 8.9 8.5-10.1 MG/DL Total Bilirubin 0.2 0.1-1.0 MG/DL Aspartate Amino Transf (AST/SGOT) 24 5-34 U/L Alanine Aminotransferase (ALT/SGPT) 23 0-55 U/L Alkaline Phosphatase 85 40-136 U/L Total Protein 6.9 6.4-8.2 GM/DL Albumin 4.2 3.2-4.5 GM/DL Lipase 952 H 8-78 U/L Lactic Acid Level 1.72 0.50-2.00 MMOL/L My Orders Orders - PURA MCNEIL MD Cbc With Automated Diff (09/15/19 23:57) Comprehensive Metabolic Panel (09/15/19 23:57) Lactic Acid Analyzer (09/15/19 23:57) Lipase (09/15/19 23:57) Ua Culture If Indicated (09/15/19 23:57) Ns Iv 1000 Ml (Sodium Chloride 0.9%) (09/16/19 00:00) Ondansetron Injection (Zofran Injectio (09/16/19 00:15) Ketorolac Injection (Toradol Injection) (09/16/19 00:15) Haloperidol Injection (Haldol Injectio (09/16/19 00:15) Medications Given in ED Current Medications Medications Dose Ordered Sig/Luba Route Start Time Stop Time Status Last Admin Dose Admin Haloperidol Lactate 5 mg ONCE ONCE IV 09/16/19 00:15 09/16/19 00:16 DC 09/16/19 00:13 5 MG Ketorolac Tromethamine 30 mg ONCE ONCE IVP 09/16/19 00:15 09/16/19 00:16 DC 09/16/19 00:14 30 MG Ondansetron HCl 4 mg ONCE ONCE IVP 09/16/19 00:15 09/16/19 00:16 DC 09/16/19 00:15 4 MG Vital Signs/I&O 09/16/19 00:16 Temp 35.8 Pulse 73 Resp 18 B/P (MAP) 113/46 (68) Pulse Ox 98 O2 Delivery Room Air Departure Communication (Admissions) Time/Spoke to Admitting Phy: 01:13 Case was discussed with Dr. Wharton and Dr. Zayas who agreed to admit the patient at [facility] Feels a little better after IV meds and fluids. Lipase is 980 one hour into her pain. I think she needs admission for observation. Patient and agree Impression Primary Impression: Abdominal pain Additional Impression: Pancreatitis Disposition: ADMITTED INPATIENT Condition: Stable Admissions Decision to Admit Reason: Admit from ER (General) Decision to Admit/Date: Sep 16, 2019 Time/Decision to Admit Time: 01:00 Departure-Patient Inst. Referrals: MIMA ROSAS MD (PCP/Family) Primary Care Physician PURA MCNEIL MD Sep 16, 2019 00:15
[2019-09-16 00:43] LABS: BUN/CREATININE RATIO 14; CALCIUM 9.1 MG/DL (8.5-10.1); CARBON DIOXIDE 20 MMOL/L (21-32); CHLORIDE 106 MMOL/L (98-107); CREATININE SERUM 0.79 MG/DL (0.60-1.30); GFR ESTIMATED > 60; GLUCOSE 157 MG/DL (70-105); POTASSIUM 3.9 MMOL/L (3.6-5.0); SODIUM 143 MMOL/L (135-145)
[2019-09-16 00:44] LABS: ALANINE AMINOTRANSFERASE 23 U/L (0-55); ALBUMIN 4.2 GM/DL (3.2-4.5); ALKALINE PHOSPHATASE 85 U/L (40-136); BILIRUBIN,TOTAL 0.2 MG/DL (0.1-1.0); LIPASE 952 U/L (8-78); TOTAL PROTEIN 6.9 GM/DL (6.4-8.2)
[2019-09-16 01:15] LABS: BILIRUBIN,URINE 1+ (NEGATIVE); CLARITY,URINE CLOUDY; COLOR,URINE YELLOW; GLUCOSE, URINE (UA) NEGATIVE (NEGATIVE); KETONES,URINE TRACE (NEGATIVE); NITRITE,URINE NEGATIVE (NEGATIVE); PROTEIN,URINE 1+ (NEGATIVE)
[2019-09-16 01:16] LABS: BACTERIA,URINE MODERATE /HPF; LEUKOCYTE ESTERASE ,URINE 2+ (NEGATIVE); WBC,URINE TNTC /HPF
[2019-09-16] MEDS ORDERED: NS IV 1000 ML 1,000 ML ONE (02:23)
--- NOTE | 2019-09-16 02:32 | NUR ---
MOSES ZUNIGA admitted to room 409-1, with an admitting diagnosis of ACUTE PANCREATITIS, on 09/16/19 from [facility], accompanied by EMS.MOSES ZUNIGA introduced to surroundings, call light, bed controls, phone, TV, temperature control, lights, meal times, smoking policy, visitor policy, side rail policy, bathrooms and showers. Patient Rights given to patient in the handbook. MOSES ZUNIGA verbalizes understanding that [facility] is not responsible for the loss or damage to any personal effects or valuables that are kept in the patients posession during their hospitalization.
[2019-09-16 02:37] VITALS: BP 115/57
[2019-09-16] MEDS ORDERED: KETOROLAC 30 MG/ML VIAL IVP PRN (02:45)
[2019-09-16] MEDS ORDERED: ONDANSETRON 4 MG/2 ML (SDV) Z0FRAN IV PRN (02:45)
[2019-09-16] MEDS: HYDROmorphone 2 MG/ML VIAL (DILAUDID) IV PRN ×2 (02:49→08:35)
[2019-09-16] MEDS: NS IV 1000 ML 1,000 ML IV SCH ×3 (02:50→18:24)
[2019-09-16 04:44] LABS: BASOPHILS % (AUTO) 0 % (0-10); EOSINOPHILS % (AUTO) 0 % (0-10); HEMATOCRIT 37 % (35-52); HEMOGLOBIN 12.2 G/DL (11.5-16.0); LYMPHOCYTES # (AUTO) 1.8 X 10^3 (1.0-4.0); LYMPHOCYTES % (AUTO) 18 % (12-44); MEAN CORPUSCULAR HEMOGLOBIN 28 PG (25-34); MEAN CORPUSCULAR HGB CONC 33 G/DL (32-36); MEAN CORPUSCULAR VOLUME 84 FL (80-99); MEAN PLATELET VOLUME 9.8 FL (7.4-10.4); MONOCYTES # (AUTO) 0.4 X 10^3 (0.0-1.0); MONOCYTES % (AUTO) 4 % (0-12); NEUTROPHILS # (AUTO) 7.6 X 10^3 (1.8-7.8); NEUTROPHILS % (AUTO) 77 % (42-75); PLATELET COUNT 283 10^3/uL (130-400); RED CELL DISTRIBUTION WIDTH 14.9 % (10.0-14.5); WHITE BLOOD COUNT 9.9 10^3/uL (4.3-11.0)
[2019-09-16 05:05] LABS: ALANINE AMINOTRANSFERASE 24 U/L (0-55); ALBUMIN 3.9 GM/DL (3.2-4.5); ALKALINE PHOSPHATASE 80 U/L (40-136); BILIRUBIN,TOTAL 0.2 MG/DL (0.1-1.0); BUN/CREATININE RATIO 14; CALCIUM 8.1 MG/DL (8.5-10.1); CARBON DIOXIDE 17 MMOL/L (21-32); CHLORIDE 113 MMOL/L (98-107); CREATININE SERUM 0.77 MG/DL (0.60-1.30); GFR ESTIMATED > 60; GLUCOSE 135 MG/DL (70-105); LIPASE 989 U/L (8-78); POTASSIUM 4.1 MMOL/L (3.6-5.0); SODIUM 141 MMOL/L (135-145); TOTAL PROTEIN 6.3 GM/DL (6.4-8.2)
[2019-09-16] MEDS: cefTRIAXone FOR IV USE 1,000 MG in WATER (STERILE) FOR INJECTION 10 ML IV SCH (05:45)
[2019-09-16 08:00] VITALS: BP 137/74
[2019-09-16] MEDS: ENOXAPARIN 40 MG/0.4 ML (LOVENOX) SYR SC SCH (08:41)
[2019-09-16 12:00] VITALS: BP 146/67
--- NOTE | 2019-09-16 12:12 | History & Physical-Hospitalist ---
History of Present Illness HPI/Chief Complaint CC: Abdominal pain with acute on chronic pancreatitis with acute UTI HPI: This is a 59yoWF clinic patient of Dr Frank in [facility] who has a h/o chronic pancreatitis since choly 14 years ago who has periodic flare ups of abdominal pain from recurrent pancreatitis once to twice a year who presented to the ER with abdominal pain and was found to have elevated lipase and w/u c/w acute pancreatitis in need of supportive care, NPO, pain control and IV abx for UTI with Rocephin empirically. Currently patient feels about the same and Dilaudid has helped her quite a bit since admit. Patient remains on Lovenox for DVT PPx. Source: patient, family, RN/MD, old records Date Seen 09/16/19 Time Seen by a Provider: 10:30 Attending Physician Malu Merritt,Nando KRISHNAMURTHY Referring Physician Date of Admission Sep 16, 2019 at 01:05 Home Medications & Allergies Home Medications Reviewed patient Home Medication Reconciliation performed by pharmacy medication reconciliations pl[employer] technician and/or nursing. Patients Allergies have been reviewed. Allergies Allergies Coded Allergies promethazine (Verified Allergy, Unknown, 06/23/19) Past Hgyvtoy-Iugozg-Qchyrd Hx Past Med/Social Hx: Reviewed Nursing Past Med/Soc Hx, Reviewed and Corrections made Patient Social History Marrital Status: Employed/Student: unemployed Alcohol Use: Denies Use Recreational Drug Use: No Smoking Status: Never a Smoker 2nd Hand Smoke Exposure: No Recent Foreign Travel: No Contact w/other who traveled: No Recent Hopitalizations: No Recent Infectious Disease Expo: No Immunizations Up To Date Date of Influenza Vaccine: Jun 16, 2019 Seasonal Allergies Seasonal Allergies: No Past Medical History Surgeries: Section, Gallbladder, Tonsillectomy, Tubal Ligation : No Tubal Ligation Gastrointestinal: Pancreatitis History of Blood Disorders: No Review of Systems Constitutional: see HPI, malaise, weakness Gastrointestinal: LUQ, nausea, vomiting Physical Exam Physical Exam Vital Signs Vital Signs - First Documented 09/16/19 00:16 Temp 35.8 Pulse 73 Resp 18 B/P (MAP) 113/46 (68) Pulse Ox 98 O2 Delivery Room Air Capillary Refill : Less Than 3 Seconds Height, Weight, BMI Height: 5'2.00" Weight: 198lbs. oz. 89.969142eg; 35.00 BMI Method:Stated General Appearance: No Apparent Distress, Anxious, Chronically ill Eyes: Right Eye Normal Inspection, Right Eye PERRL HEENT: PERRL/EOMI, Normal ENT Inspection, Pharynx Normal, Moist Mucous Membranes Neck: Full Range of Motion, Normal Inspection, Non Tender Respiratory: Chest Non Tender, Lungs Clear, Normal Breath Sounds, No Accessory Muscle Use, No Respiratory Distress Cardiovascular: Regular Rate, Rhythm, No Edema, No Gallop, No JVD, No Murmur, Normal Peripheral Pulses Gastrointestinal: Normal Bowel Sounds, No Organomegaly, No Pulsatile Mass, Soft, Tenderness Back: Normal Inspection, No CVA Tenderness, No Vertebral Tenderness Extremity: Normal Capillary Refill, Normal Inspection, Normal Range of Motion, Non Tender, No Calf Tenderness, No Pedal Edema Neurologic/Psychiatric: Alert, Oriented x3, No Motor/Sensory Deficits, Normal Mood/Affect Skin: Normal Color, Warm/Dry Lymphatic: No Adenopathy Results Results/Procedures Labs Laboratory Tests 09/15/19 00:01 09/16/19 04:36 Patient resulted labs reviewed. Assessment/Plan Admission Diagnosis Assessment: Acute pancreatitis Chronic pancreatitis Acute UTI [facility] Pain control Admission Status: Inpatient Order (span 2 midnights) Reason for Inpatient Admission: acute on chronic pancreatitis Diagnosis/Problems Diagnosis/Problems (1) Pancreatitis Status: Acute (2) UTI (urinary tract infection) (3) DVT prophylaxis (4) Abdominal pain Status: Acute (5) Chronic pancreatitis Status: Acute (6) Nausea and vomiting Status: Acute Clinical Quality Measures DVT/VTE Risk/Contraindication: Risk Factor Score Per Nursin RFS Level Per Nursing on Admit: 3=High MALU MERRITT DO Sep 16, 2019 12:12
--- NOTE | 2019-09-16 13:19 | Consultation - Surgery ---
History of Present Illness History of Present Illness Patient Consulted On(quan/time) 09/16/19 13:14 Time Seen by Provider: 12:35 History of Present Illness Surgery asked to consult regarding Pancreatitis. HPI: Pt states that yesterday she got a sharp stabbing pain in her LUQ; "just like all my other pancreatitis attacks". States she had just celebrated one year not being in the hospital; has been in and out of hospital muliple times over the past 14 years. Rated the pain 10 out of 10 last night, only 5-6 now. Radiates down the left side. Pt denies any certain foods caused the pain and she does not drink alcohol. Associated with nausea and vomiting multiple times yesterday, none today. Pt states she also takes Pancrease and has "thrown away all my other meds". Allergies and Home Medications Allergies Coded Allergies: promethazine (Verified Allergy, Unknown, 06/23/19) Home Medications Ondansetron HCl 4 Mg Tab, 4 MG PO Q4H PRN for NAUSEA/VOMITING-1ST LINE Prescribed by: YVES FROST on 11/01/182154 Oxycodone Hcl 5 Mg Capsule, 5 MG PO Q6H Prescribed by: YVES FROST on 11/01/182154 Patient Home Medication List Home Medication List Reviewed: Yes Past Ayscaxt-Hrykrc-Varbdg Hx Patient Social History Alcohol Use: Denies Use Recreational Drug Use: No Smoking Status: Never a Smoker 2nd Hand Smoke Exposure: No Recent Foreign Travel: No Contact w/Someone Who Travel: No Recent Infectious Disease Expo: No Recent Hopitalizations: No Immunizations Up To Date Date of Influenza Vaccine: Jun 16, 2019 Seasonal Allergies Seasonal Allergies: No Surgeries History of Surgeries: Yes Surgeries: Section, Gallbladder, Tonsillectomy, Tubal Ligation Respiratory History of Respiratory Disorde: No Cardiovascular History of Cardiac Disorders: No Neurological History of Neurological Disord: No Reproductive System : 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 Genitourinary History of Genitourinary Disor: No Gastrointestinal History of Gastrointestinal Di: Yes (CHRONIC PANCREATITIS) Gastrointestinal Disorders: Pancreatitis Endocrine History of Endocrine Disorders: No HEENT History of HEENT Disorders: No Cancer History of Cancer: No Psychosocial History of Psychiatric Problem: No Integumentary History of Skin or Integumenta: No Blood Transfusions History of Blood Disorders: No Family Medical History Significant Family History: Renal Disease (mother has one kidney and is on dialysis) Review of Systems-General Constitutional: chills, diaphoresis, malaise EENTM: No blurred vision, No double vision, No mouth pain, No mouth swelling, No epistaxis Respiratory: No cough, No dyspnea on exertion Cardiovascular: No chest pain, No edema, No palpitations Gastrointestinal: abdominal pain; No jaundice; loss of appetite, nausea, vomiting Genitourinary: dysuria, frequency; No hematuria Musculoskeletal: joint pain, muscle pain, muscle stiffness Skin: No change in color, No change in hair/nails Psychiatric/Neurological: Denies Anxiety, Denies Depressed; Numbness, Paresthesia; Denies Seizure; Tingling; Denies Tremors Other HEMATOLOGY Pt denies any hx of abnormal bleeding or bruising Physical Exam-General Problems Physical Exam Vital Signs Vital Signs - First Documented 09/16/19 00:16 Temp 35.8 Pulse 73 Resp 18 B/P (MAP) 113/46 (68) Pulse Ox 98 O2 Delivery Room Air Capillary Refill : Less Than 3 Seconds General Appearance: WD/WN, no apparent distress Eyes: Bilateral Eye PERRL, Bilateral Eye EOMI HEENT: pharynx normal; No scleral icterus (R), No scleral icterus (L) Neck: non-tender, full range of motion, supple Respiratory: chest non-tender, lungs clear, normal breath sounds, no resp iratory distress, no accessory muscle use Cardiovascular: regular rate, rhythm, no murmur Gastrointestinal: normal bowel sounds, soft, no organomegaly, no pulsatile mass, guarding (voluntary), tenderness (LUQ most and LLQ) Back: no CVA tenderness, no vertebral tenderness Extremities: normal range of motion, no pedal edema, no calf tenderness 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, no motor/sensory deficits, alert, normal mood/affect, oriented x 3 Skin: normal color, warm/dry Lymphatic: no adenopathy (neck, axilla or groin) Data Review Labs Laboratory Tests 09/16/19 04:36: White Blood Count 9.9, Red Blood Count 4.37, Hemoglobin 12.2, Hematocrit 37, Mean Corpuscular Volume 84, Mean Corpuscular Hemoglobin 28, Mean Corpuscular Hemoglobin Concent 33, Red Cell Distribution Width 14.9H, Platelet Count 283, Mean Platelet Volume 9.8, Neutrophils (%) (Auto) 77H, Lymphocytes (%) (Auto) 18, Monocytes (%) (Auto) 4, Eosinophils (%) (Auto) 0, Basophils (%) (Auto) 0, Neutrophils # (Auto) 7.6, Lymphocytes # (Auto) 1.8, Monocytes # (Auto) 0.4, Eosinophils # (Auto) 0.0, Basophils # (Auto) 0.0, Sodium Level 141, Potassium Level 4.1, Chloride Level 113H, Carbon Dioxide Level 17L, Anion Gap 11, Blood Urea Nitrogen 11, Creatinine 0.77, Estimat Glomerular Filtration Rate > 60, BUN/Creatinine Ratio 14, Glucose Level 135H, Calcium Level 8.1L, Corrected Calcium 8.2L, Total Bilirubin 0.2, Aspartate Amino Transf (AST/SGOT) 18, Alanine Aminotransferase (ALT/SGPT) 24, Alkaline Phosphatase 80, Total Protein 6.3L, Albumin 3.9, Lipase 989H Assessment/Plan Assessment/Plan Assessment/Plan Pancreatitis Pt must stay NPO until her pain is almost gone and pancreatic enzymes are trending down (to almost normal). Unfortunately she still has pain and her enzymes actually went up today. Her WBC is back to normal. I explained all of this to the pt and she understood. No need for CT unless pain gets worse, WBC increases and enzymes go up. Clinical Quality Measures DVT/VTE Risk/Contraindication: Risk Factor Score Per Nursin RFS Level Per Nursing on Admit: 3=High MARTINA CAMPBELL DO Sep 16, 2019 13:19
[2019-09-16 15:48] VITALS: BP 138/68
[2019-09-16] MEDS ORDERED: diphenhydrAMINE 25 MG TAB (BENADRYL) PO PRN (16:00)
[2019-09-16] MEDS ORDERED: CALCIUM CARBONATE 500 MG (TUMS) TAB.CHEW PO PRN (16:00)
[2019-09-16] MEDS ORDERED: DOCUSATE SODIUM 100 MG (COLACE) CAP PO PRN (16:00)
[2019-09-16] MEDS ORDERED: MELATONIN 3 MG TABLET PO PRN (16:00)
[2019-09-16] MEDS ORDERED: ALPRAZolam 0.25 MG (XANAX) TAB PO PRN (16:00)
[2019-09-16] MEDS ORDERED: LOPERAMIDE 2 MG (IMODIUM) TABLET PO PRN (16:00)
[2019-09-16 19:55] VITALS: BP 157/76
[2019-09-16] MEDS: SENNA W/DOCUSATE (SENOKOT S) TABLET PO SCH (21:10)
[2019-09-17 00:11] VITALS: BP 131/74
[2019-09-17] MEDS: NS IV 1000 ML 1,000 ML IV SCH ×2 (02:25→10:56)
[2019-09-17] MEDS: cefTRIAXone FOR IV USE 1,000 MG in WATER (STERILE) FOR INJECTION 10 ML IV SCH (02:28)
[2019-09-17 06:13] LABS: BASOPHILS % (AUTO) 1 % (0-10); EOSINOPHILS # (AUTO) 0.2 10^3/uL (0.0-0.3); EOSINOPHILS % (AUTO) 3 % (0-10); HEMATOCRIT 36 % (35-52); HEMOGLOBIN 11.9 G/DL (11.5-16.0); LYMPHOCYTES # (AUTO) 2.5 X 10^3 (1.0-4.0); LYMPHOCYTES % (AUTO) 39 % (12-44); MEAN CORPUSCULAR HGB CONC 33 G/DL (32-36); MEAN CORPUSCULAR VOLUME 84 FL (80-99); MEAN PLATELET VOLUME 9.7 FL (7.4-10.4); MONOCYTES # (AUTO) 0.5 X 10^3 (0.0-1.0); MONOCYTES % (AUTO) 7 % (0-12); NEUTROPHILS # (AUTO) 3.3 X 10^3 (1.8-7.8); NEUTROPHILS % (AUTO) 51 % (42-75); PLATELET COUNT 332 10^3/uL (130-400); WHITE BLOOD COUNT 6.4 10^3/uL (4.3-11.0)
[2019-09-17 06:14] LABS: MEAN CORPUSCULAR HEMOGLOBIN 27 PG (25-34)
[2019-09-17 06:55] LABS: ALANINE AMINOTRANSFERASE 21 U/L (0-55); ALBUMIN 3.8 GM/DL (3.2-4.5); ALKALINE PHOSPHATASE 76 U/L (40-136); BILIRUBIN,TOTAL 0.6 MG/DL (0.1-1.0); BUN/CREATININE RATIO 8; CALCIUM 8.1 MG/DL (8.5-10.1); CARBON DIOXIDE 17 MMOL/L (21-32); CHLORIDE 112 MMOL/L (98-107); CREATININE SERUM 0.66 MG/DL (0.60-1.30); GFR ESTIMATED > 60; GLUCOSE 93 MG/DL (70-105); LIPASE 42 U/L (8-78); POTASSIUM 3.5 MMOL/L (3.6-5.0); SODIUM 140 MMOL/L (135-145)
--- NOTE | 2019-09-17 07:15 | Progress Note - Surgery ---
Subjective Date Seen by a Provider: Sep 17, 2019 Time Seen by a Provider: 06:21 Subjective/Events-last exam Patient examined this morning. Is sitting comfortable in a chair during exam. She is upbeat and states she is feeling much better and is ready to eat and go home. She feels like her pancreatic enzymes are back to normal. Review of Systems General: No Chills, No Fatigue; Appetite (states she is very hungry) HEENT: No Head Aches, No Visual Changes Pulmonary: No Dyspnea, No Cough Cardiovascular: No: Chest Pain, Palpitations Gastrointestinal: Diarrhea; No: Nausea, Vomiting, Abdominal Pain Focused Exam Lactate Level 09/15/19 00:09: Lactic Acid Level 1.72 Objective Exam Vital Signs Date Time Temp Pulse Resp B/P (MAP) Pulse Ox O2 Delivery O2 Flow Rate FiO2 09/17/19 00:11 36.7 74 18 131/74 (93) 98 Room Air 09/16/19 20:15 Room Air 09/16/19 19:55 36.4 80 18 157/76 (103) 98 Room Air 09/16/19 15:48 36.5 77 18 138/68 (91) 98 Room Air 09/16/19 12:00 36.5 68 18 146/67 (93) 96 Room Air 09/16/19 08:00 Room Air 09/16/19 08:00 36.5 66 16 137/74 (95) 96 Room Air I & O 09/17/19 07:00 Intake Total 2000 ml Balance 2000 ml Capillary Refill : Less Than 3 Seconds General Appearance: No Apparent Distress, WD/WN HEENT: PERRL/EOMI, Pharynx Normal, Moist Mucous Membranes Neck: Non Tender, Supple Respiratory: Chest Non Tender, Lungs Clear, No Accessory Muscle Use, No Respiratory Distress Cardiovascular: Regular Rate, Rhythm, No Murmur Peripheral Pulses: 2+ Radial Pulses (R), 2+ Radial Pulses (L) Gastrointestinal: normal bowel sounds, non tender, soft, no organomegaly Extremity: No Pedal Edema Neurologic/Psychiatric: Alert, Oriented x3, No Motor/Sensory Deficits, Normal Mood/Affect Skin: Normal Color, Warm/Dry Lymphatic: No Adenopathy (cervical, supraclavicular) Results Lab Laboratory Tests 09/17/19 05:55: White Blood Count 6.4, Red Blood Count 4.33L, Hemoglobin 11.9, Hematocrit 36, Mean Corpuscular Volume 84, Mean Corpuscular Hemoglobin 27, Mean Corpuscular Hemoglobin Concent 33, Red Cell Distribution Width 15.0H, Platelet Count 332, Mean Platelet Volume 9.7, Neutrophils (%) (Auto) 51, Lymphocytes (%) (Auto) 39, Monocytes (%) (Auto) 7, Eosinophils (%) (Auto) 3, Basophils (%) (Auto) 1, Neutrophils # (Auto) 3.3, Lymphocytes # (Auto) 2.5, Monocytes # (Auto) 0.5, Eosinophils # (Auto) 0.2, Basophils # (Auto) 0.0, Sodium Level 140, Potassium Level 3.5L, Chloride Level 112H, Carbon Dioxide Level 17L, Anion Gap 11, Blood Urea Nitrogen 5L, Creatinine 0.66, Estimat Glomerular Filtration Rate > 60, BUN/Creatinine Ratio 8, Glucose Level 93, Calcium Level 8.1L, Corrected Calcium 8.3L, Total Bilirubin 0.6, Aspartate Amino Transf (AST/SGOT) 21, Alanine Aminotransferase (ALT/SGPT) 21, Alkaline Phosphatase 76, Total Protein 6.0L, Albumin 3.8, Lipase 42 Assessment/Plan Assessment/Plan Assessment/Plan Pancreatitis Pt must stay NPO until her pain is almost gone and pancreatic enzymes are trending down (to almost normal). Unfortunately she still has pain and her enzymes actually went up today. Her WBC is back to normal. I explained all of this to the pt and she understood. No need for CT unless pain gets worse, WBC increases and enzymes go up. Clinical Quality Measures DVT/VTE Risk/Contraindication: Risk Factor Score Per Nursin RFS Level Per Nursing on Admit: 3=High GERMÁN LANDEROS,MED STUDENT Sep 17, 2019 07:15
[2019-09-17 08:00] VITALS: BP 142/84
[2019-09-17] MEDS: ENOXAPARIN 40 MG/0.4 ML (LOVENOX) SYR SC SCH (08:23)
[2019-09-17] MEDS: SENNA W/DOCUSATE (SENOKOT S) TABLET PO SCH (08:24)
[2019-09-17] MEDS ORDERED: CHOL20003 PO (08:47)
[2019-09-17] MEDS ORDERED: CYAN-41 PO (08:47)
[2019-09-17] MEDS ORDERED: MAGN400T39 PO (08:47)
[2019-09-17] MEDS ORDERED: CITA20TA9 PO (08:47)
[2019-09-17] MEDS ORDERED: LIPA1CAP PO (08:47)
[2019-09-17] MEDS ORDERED: ALPR0.5T7 PO (08:47)
[2019-09-17] MEDS ORDERED: ONDA4TAB11 PO (08:47)
[2019-09-17] MEDS ORDERED: VITA400C60 PO (08:47)
[2019-09-17] MEDS ORDERED: OXYC-465 PO (08:47)
--- NOTE | 2019-09-17 08:47 | NUR ---
WENT OVER THE EXT MED HX AND SHE LISTED HER OTC MEDICATIONS. Addendum: 09/17/19 at 0848 by MARIBETH SANTIAGO [facility] HER PANCREAZE IS PRESCRIBED QID HOWEVER SHE TAKES IT BID BECAUSE IT IS EXPENSIVE AND SHE CAN'T AFFORD TO FILL IT OFTEN ENOUGH TO TAKE QID.
[2019-09-17] MEDS ORDERED: CEFD300C3 PO (10:33)
--- NOTE | 2019-09-17 11:54 | Discharge Summary ---
RL CASIANO,MED STUDENT 09/17/19 1154: Diagnosis/Chief Complaint Date of Admission Sep 16, 2019 at 01:05 Date of Discharge Discharge Date: Sep 17, 2019 Admission Diagnosis Assessment: Acute pancreatitis Chronic pancreatitis Acute UTI DVT PPx Plan: Elvira Zayas consultation is appreciated Pain control Primary Care Self,Nando KRISHNAMURTHY Discharge Diagnosis (1) Pancreatitis Status: Acute (2) UTI (urinary tract infection) (3) DVT prophylaxis (4) Abdominal pain Status: Acute (5) Chronic pancreatitis Status: Acute (6) Nausea and vomiting Status: Acute Discharge Summary Discharge Physical Exam Allergies: Coded Allergies: promethazine (Verified Allergy, Unknown, 06/23/19) Vitals & I&Os Vital Signs Date Time Temp Pulse Resp B/P (MAP) Pulse Ox O2 Delivery O2 Flow Rate FiO2 09/17/19 11:46 09/17/19 08:00 36.2 74 20 96 Room Air General Appearance: No Apparent Distress, WD/WN HEENT: Pharynx Normal, Moist Mucous Membranes Respiratory: Chest Non Tender, Lungs Clear, Normal Breath Sounds, No Accessory Muscle Use, No Respiratory Distress Cardiovascular: Regular Rate, Rhythm, No Edema, No Gallop, No Murmur, Normal Peripheral Pulses Gastrointestinal: Non Tender, Soft Extremity: No Calf Tenderness, No Pedal Edema Skin: Normal Color, Warm/Dry Neurologic/Psychiatric: Alert, Oriented x3, Normal Mood/Affect Hospital Course Pt presented to ED 09/16/2019 with abdominal pain, nausea similar to previous exacerbations of chronic pancreatitis. Due to need for pain control, pt was admitted to hospital for IV pain control, fluid resuscitation and antibiotic prophylaxis, surgery consult and pt was made NPO. Pts elevated WBC, lipase and pain resolved overnight. Pt was discharged with return precautions after successful diet trial. Labs (last 24 hrs) Laboratory Tests 09/17/19 05:55: White Blood Count 6.4, Red Blood Count 4.33L, Hemoglobin 11.9, Hematocrit 36, Mean Corpuscular Volume 84, Mean Corpuscular Hemoglobin 27, Mean Corpuscular Hem oglobin Concent 33, Red Cell Distribution Width 15.0H, Platelet Count 332, Mean Platelet Volume 9.7, Neutrophils (%) (Auto) 51, Lymphocytes (%) (Auto) 39, Monocytes (%) (Auto) 7, Eosinophils (%) (Auto) 3, Basophils (%) (Auto) 1, Neutro phils # (Auto) 3.3, Lymphocytes # (Auto) 2.5, Monocytes # (Auto) 0.5, Eosinophils # (Auto) 0.2, Basophils # (Auto) 0.0, Sodium Level 140, Potassium Level 3.5L, Chloride Level 112H, Carbon Dioxide Level 17L, Anion Gap 11, Blood Urea Nitrogen 5L, Creatinine 0.66, Estimat Glomerular Filtration Rate > 60, BUN/Creatinine Ratio 8, Glucose Level 93, Calcium Level 8.1L, Corrected Calcium 8.3L, Total Bilirubin 0.6, Aspartate Amino Transf (AST/SGOT) 21, Alanine Aminotransferase (ALT/SGPT) 21, Alkaline Phosphatase 76, Total Protein 6.0L, Albumin 3.8, Lipase 42 Patient resulted labs reviewed. Pending Labs Laboratory Tests 09/17/19 05:55: White Blood Count 6.4, Red Blood Count 4.33, Hemoglobin 11.9, Hematocrit 36, Mean Corpuscular Volume 84, Mean Corpuscular Hemoglobin 27, Mean Corpuscular Hemoglobin Concent 33, Red Cell Distribution Width 15.0, Platelet Count 332, Mean Platelet Volume 9.7, Neutrophils (%) (Auto) 51, Lymphocytes (%) (Auto) 39, Monocytes (%) (Auto) 7, Eosinophils (%) (Auto) 3, Basophils (%) (Auto) 1, Neutrophils # (Auto) 3.3, Lymphocytes # (Auto) 2.5, Monocytes # (Auto) 0.5, Eosinophils # (Auto) 0.2, Basophils # (Auto) 0.0, Sodium Level 140, Potassium Level 3.5, Chloride Level 112, Carbon Dioxide Level 17, Anion Gap 11, Blood Urea Nitrogen 5, Creatinine 0.66, Estimat Glomerular Filtration Rate > 60, BUN/Creatinine Ratio 8, Glucose Level 93, Calcium Level 8.1, Corrected Calcium 8.3, Total Bilirubin 0.6, Aspartate Amino Transf (AST/SGOT) 21, Alanine Aminotransferase (ALT/SGPT) 21, Alkaline Phosphatase 76, Total Protein 6.0, Albumin 3.8, Lipase 42 Discharge Home Medications: Active Scripts Active Cefdinir 300 Mg Capsule 300 Mg PO BID Reported Alprazolam 0.5 Mg Tablet 0.5 Mg PO TID PRN Pancreaze Dr 10,500 Unit Cap (Lipase/Protease/Amylase) 1 Each Capsule.dr 1 Cap PO BID Oxycodone-Acetaminophen 10-325 (Oxycodone HCl/Acetaminophen) 1 Each Tablet 1 Tab PO Q4H PRN Vitamin B-12 (Cyanocobalamin (Vitamin B-12)) 1,000 Mcg Tablet 1,000 Mcg PO DAILY Vitamin D3 (Cholecalciferol (Vitamin D3)) 2,000 Unit Capsule 2,000 Unit PO DAILY Magnesium (Magnesium Oxide) 400 Mg Tablet 400 Mg PO DAILY Vitamin E (Vitamin E Acetate) 400 Unit Capsule 400 Unit PO DAILY Citalopram HBr (Citalopram Hydrobromide) 20 Mg Tablet 20 Mg PO DAILY Ondansetron Odt (Ondansetron) 4 Mg Tab.rapdis 4 Mg PO Q6H PRN Instructions to patient/family Please see electronic discharge instructions given to patient. Clinical Quality Measures DVT/VTE Risk/Contraindication: Risk Factor Score Per Nursin RFS Level Per Nursing on Admit: 3=High MALU MERRITT DO 09/17/191: Diagnosis/Chief Complaint Discharge Diagnosis (1) Pancreatitis Status: Acute (2) Chronic pancreatitis Status: Acute (3) Nausea and vomiting Status: Acute (4) Abdominal pain Status: Acute (5) UTI (urinary tract infection) Discharge Summary Discharge Physical Exam Allergies: Coded Allergies: promethazine (Verified Allergy, Unknown, 06/23/19) General Appearance: No Apparent Distress, WD/WN Respiratory: Chest Non Tender, Lungs Clear, Normal Breath Sounds, No Accessory Muscle Use, No Respiratory Distress Cardiovascular: Regular Rate, Rhythm, No Edema, No Gallop, No JVD, No Murmur, Normal Peripheral Pulses Hospital Course Was the Problem List Reviewed?: Yes Hospital Course: Pt had a pretty short hospital stay after acute on chronic pancreatitis lipase in the 900 range, Pt was given supportive care with IV fluids, IV pain medication and NPO. Pancreatitis improved with lipase of 42 and Pt was ready for discharge. Discussion & Recommendations Discharge Planning: <30 minutes discharge planning Supervisory-Addendum Brief Verification & Attestation Participated in pt care: history, MDM, physical Personally performed: exam, history, MDM, supervision of care Care discussed with: Medical Student Procedures: n/a Results interpretation: Verified all documentation Verification and Attestation of Medical Student E/M Service A medical student performed and documented this service in my presence. I reviewed and verified all information documented by the medical student and made modifications to such information, when appropriate. I personally performed the physical exam and medical decision making. Malu Merritt, Sep 17, 2019,21:52 RL CASIANO,MED STUDENT Sep 17, 2019 11:54 MALU MERRITT DO Sep 17, 2019 21:51
== END 2019-09-17 12:55 | disposition home or self-care (01) | DRG 439 ==
LOC: EDUNIT# 23:52 → ER FS 23:53 → 4TH 09-16 01:05
PROVIDERS: ADMIT Internal Medicine; ATTEND Internal Medicine
DX: K85.90 Acute pancreatitis without necrosis or infection, unspecified (principal); N39.0 Urinary tract infection, site not specified; K86.1 Other chronic pancreatitis; F41.9 Anxiety disorder, unspecified; Z98.51 Tubal ligation status
CPT/HCPCS: 36415; 80053; 81000; 83605; 83690; 85025; 87088; 96361; 96374; 96375; 99284

== ENCOUNTER 2021-02-16 10:23 | Emergency (ER) | payer MEDICARE, OTHER ==
[~2021-02-16] VITALS: Ht 152.4 cm; Wt 86.2 kg
[~2021-02-16 10:23] MED LIST changes: +ALPR0.5T7 PO; +CEFD300C3 PO; +CHOL20003 PO; +CITA20TA9 PO; +CYAN-41 PO; +LIPA1CAP PO; +MAGN400T39 PO; +ONDA4TAB11 PO; +OXYC-556 PO; +VITA400C60 PO
[2021-02-16] MEDS ORDERED: HYDROmorphone 2 MG/ML VIAL (DILAUDID) IV STA ×2 (10:36→11:21)
[2021-02-16] MEDS ORDERED: ONDANSETRON 4 MG/2 ML (SDV) Z0FRAN IVP STA ×2 (10:36→11:21)
[2021-02-16] MEDS ORDERED: NS IV 1000 ML 1,000 ML IV STA (10:36)
[2021-02-16] MEDS ORDERED: HALOPERIDOL 5 MG/ML (HALDOL) VIAL IV STA (10:36)
--- NOTE | 2021-02-16 10:44 | ED GI ---
General Chief Complaint: Abdominal/GI Problems Stated Complaint: ULQ PAIN Nursing Triage Note: Patient reports she has chronic pancreatitis, states she woke with left abdominal pain last night around 11 pm. Sepsis Screen: No Definite Risk Source of Information: Patient, Old Records, RN/MD (PCP, Dr. Frank) History of Present Illness Date Seen by Provider: Feb 16, 2021 Time Seen by Provider: 10:25 Initial Comments 60 yo Female presents with complaints of recurrent LUQ abdominal pain similar to prior episodes of pancreatitis. It is a sharp stabbing pain and has a chronic dull ache around 4-5 out of 10 but spikes to 10 at times. Pain started last night around 2300. She has had multiple episodes in the past. She has usually just managed the episodes at home by pushing fluids and using some nausea medicine. However today her pain was bad enough that she went to the clinic. They referred her here to the emergency department because of her pain level. She denies any fever or chills. She has had no blood in her vomit or diarrhea. She is requesting medicine and fluids to help get her symptoms under control but is hoping that she can go home rather than be admitted to the hospital. She has had some diarrhea and states that is a chronic recurrent issue when she gets a flareup of her pancreatitis. She denies any pain or burning with urination. Timing/Duration: 12 Hours Severity/Quality: Severe, Sharp, Stabbing Location: LUQ Radiation: LUQ Activities at Onset: None Modifying Factors: Worsens With Eating, Worsens With Palpation Associated Symptoms: No Chest Pain, No Diaphoresis, No Fever/Chills, No Fatigue, No Headache, No Heartburn; Nausea/Vomiting (nausea but no vomiting yet); No Rash, No Shortness of Air, No Swelling/Mass in Abdomen, No Syncope, No Weakness Allergies and Home Medications Allergies Coded Allergies: promethazine (Verified Allergy, Unknown, 06/23/19) Home Medications Alprazolam 0.5 Mg Tablet, 0.5 MG PO TID PRN for ANXIETY, (Reported) Cefdinir 300 Mg Capsule, 300 MG PO BID Prescribed by: JOHN MERRITT on 09/17/19 1033 Cholecalciferol (Vitamin D3) 2,000 Unit Capsule, 2,000 UNIT PO DAILY, (Reported) Citalopram Hydrobromide 20 Mg Tablet, 20 MG PO DAILY, (Reported) Cyanocobalamin (Vitamin B-12) 1,000 Mcg Tablet, 1,000 MCG PO DAILY, (Reported) Lipase/Protease/Amylase 1 Each Capsule.dr, 1 CAP PO BID, (Reported) Magnesium Oxide 400 Mg Tablet, 400 MG PO DAILY, (Reported) Ondansetron 4 Mg Tab.rapdis, 4 MG PO Q6H PRN for NAUSEA/VOMITING-1ST LINE Prescribed by: MINA GARCIART on 02/16/21 1126 Oxycodone HCl/Acetaminophen 1 Each Tablet, 1 TAB PO Q4H PRN for PAIN-MODERATE (5-7), (Reported) Prochlorperazine Maleate 10 Mg Tablet, 10 MG PO TID PRN for NAUSEA/VOMITING-2ND LINE Prescribed by: MINA GARCIART on 02/16/21 1126 Vitamin E Acetate 400 Unit Capsule, 400 UNIT PO DAILY, (Reported) Patient Home Medication List Home Medication List Reviewed: Yes Review of Systems Review of Systems Constitutional: No chills, No fever EENTM: No Symptoms Reported Respiratory: No Symptoms Reported Cardiovascular: No Symptoms Reported Gastrointestinal: See HPI Genitourinary: No Symptoms Reported Musculoskeletal: no symptoms reported Skin: no symptoms reported Psychiatric/Neurological: Anxiety Endocrine: No Symptoms Reported Hematologic/Lymphatic: No Symptoms Reported Past Ntpltty-Yydhon-Suybvo Hx Past Med/Social Hx: Reviewed Nursing Past Med/Soc Hx Patient Social History Alcohol Use: Denies Use Smoking Status: Never a Smoker 2nd Hand Smoke Exposure: No Recent Infectious Disease Expo: No Recent Hopitalizations: No Immunizations Up To Date Date of Influenza Vaccine: Jun 16, 2019 Seasonal Allergies Seasonal Allergies: No Past Medical History Surgeries: Yes Section, Gallbladder, Orthopedic, Tonsillectomy, Tubal Ligation Respiratory: No Cardiac: No Neurological: No 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 oz. [id number]; 37.00 BMI Method:Stated General Appearance: moderate distress, obese HEENT: PERRL/EOMI Neck: non-tender, full range of motion, supple, normal inspection Respiratory: chest non-tender, lungs clear, normal breath sounds, no respiratory distress, no accessory muscle use Cardiovascular: normal peripheral pulses, regular rate, rhythm Gastrointestinal: normal bowel sounds, soft, no pulsatile mass, guarding (LUQ); No rebound; tenderness (LUQ) Extremities: normal range of motion, non-tender, normal capillary refill Neurologic/Psychiatric: alert, oriented x 3 Skin: normal color, warm/dry Progress/Results/Core Measures Results/Orders Lab Results Laboratory Tests Test 02/16/21 10:30 Range/Units White Blood Count 6.9 4.3-11.0 10^3/uL Red Blood Count 4.82 4.35-5.85 10^6/uL Hemoglobin 13.5 11.5-16.0 G/DL Hematocrit 42 35-52 % Mean Corpuscular Volume 86 80-99 FL Mean Corpuscular Hemoglobin 28 25-34 PG Mean Corpuscular Hemoglobin Concent 33 32-36 G/DL Red Cell Distribution Width 13.7 10.0-14.5 % Platelet Count 504 H 130-400 10^3/uL Mean Platelet Volume 9.3 7.4-10.4 FL Immature Granulocyte % (Auto) 0 % Neutrophils (%) (Auto) 50 42-75 % Lymphocytes (%) (Auto) 40 12-44 % Monocytes (%) (Auto) 7 0-12 % Eosinophils (%) (Auto) 3 0-10 % Basophils (%) (Auto) 1 0-10 % Neutrophils # (Auto) 3.4 1.8-7.8 X 10^3 Lymphocytes # (Auto) 2.8 1.0-4.0 X 10^3 Monocytes # (Auto) 0.5 0.0-1.0 X 10^3 Eosinophils # (Auto) 0.2 0.0-0.3 10^3/uL Basophils # (Auto) 0.1 0.0-0.1 10^3/uL Immature Granulocyte # (Auto) 0.0 0.0-0.1 10^3/uL Sodium Level 138 135-145 MMOL/L Potassium Level 4.0 3.6-5.0 MMOL/L Chloride Level 102 98-107 MMOL/L Carbon Dioxide Level 25 21-32 MMOL/L Anion Gap 11 5-14 MMOL/L Blood Urea Nitrogen 10 7-18 MG/DL Creatinine 0.80 0.60-1.30 MG/DL Estimat Glomerular Filtration Rate > 60 BUN/Creatinine Ratio 13 Glucose Level 107 H 70-105 MG/DL Calcium Level 9.3 8.5-10.1 MG/DL Corrected Calcium 9.0 8.5-10.1 MG/DL Total Bilirubin 0.4 0.1-1.0 MG/DL Aspartate Amino Transf (AST/SGOT) 28 5-34 U/L Alanine Aminotransferase (ALT/SGPT) 31 0-55 U/L Alkaline Phosphatase 104 40-136 U/L Total Protein 7.3 6.4-8.2 GM/DL Albumin 4.4 3.2-4.5 GM/DL Lipase 69 8-78 U/L My Orders Orders - MINA ALTMAN MD Comprehensive Metabolic Panel (02/16/21 10:36) Lipase (02/16/21 10:36) Ed Iv/Invasive Line Start (02/16/21 10:36) Cbc With Automated Diff (02/16/21 10:36) Ns Iv 1000 Ml (Sodium Chloride 0.9%) (02/16/21 10:36) Ondansetron Injection (Zofran Injectio (02/16/21 10:36) Hydromorphone Injection (Dilaudid Inject (02/16/21 10:36) Haloperidol Injection (Haldol Injectio (02/16/21 10:36) Hydromorphone Injection (Dilaudid Inject (02/16/21 11:21) Ondansetron Injection (Zofran Injectio (02/16/21 11:21) Vital Signs/I&O 02/16/21 02/16/21 10:25 11:40 Temp 36.5 Pulse 78 85 Resp 16 14 B/P (MAP) 150/63 (92) 146/79 Pulse Ox 100 93 O2 Delivery Room Air Room Air Blood Pressure Mean: 92 Progress Progress Note #1: Progress Note Order labs and urinalysis. Give IV fluids 1 L normal saline for hydration, Zofran 4 mg IV for nausea, haloperidol 2.5 mg IV for nausea and anxiety, Dilaudid 1 mg IV for pain. Differential diagnosis includes chronic pancreatitis, colitis, diverticulitis, gastritis Progress Note #2: Progress Note CBC and chemistry are stable without acute significant abnormality. Lipase is not elevated. Patient is feeling better after treatment in the ED and states her pain and nausea are improved. Will discharge to home with refill of Zofran and Compazine. Counseled on follow-up and return precautions. Await her to drive her home since she had been given narcotic pain medicine. Departure Impression Primary Impression: Chronic recurrent pancreatitis Additional Impression: Left upper quadrant abdominal pain Disposition: HOME, SELF-CARE Condition: Improved Departure-Patient Inst. Decision time for Depature: 11:26 Referrals: SELFMIMA MD (PCP/Family) Primary Care Physician Patient Instructions: Chronic Pancreatitis (DC), Nausea and Vomiting, Adult ED Add. Discharge Instructions: Use the nausea medicine to help keep your stomach settled and keep sipping on water and electrolyte drinks to stay hydrated. Follow up with clinic for continued concerns All discharge instructions reviewed with patient and/or family. Voiced understanding. Scripts Prochlorperazine Maleate (Prochlorperazine Maleate) 10 Mg Tablet 10 MG PO TID PRN for NAUSEA/VOMITING-2ND LINE for 10 Days, #30 TAB 0 Refills Prov: MINA ALTMAN MD 02/16/21 Ondansetron (Ondansetron Odt) 4 Mg Tab.rapdis 4 MG PO Q6H PRN for NAUSEA/VOMITING-1ST LINE for 10 Days, #40 TAB 0 Refills Prov: MINA ALTMAN MD 02/16/21 Images Torso/Trunk 1 - Tenderness (moderate pain to palpation LUQ) MINA ALTMAN MD Feb 16, 2021 10:44
[2021-02-16 10:53] LABS: EOSINOPHILS % (AUTO) 3 % (0-10); HEMATOCRIT 42 % (35-52); HEMOGLOBIN 13.5 G/DL (11.5-16.0); LYMPHOCYTES % (AUTO) 40 % (12-44); MEAN CORPUSCULAR HEMOGLOBIN 28 PG (25-34); MEAN CORPUSCULAR HGB CONC 33 G/DL (32-36); MEAN CORPUSCULAR VOLUME 86 FL (80-99); MEAN PLATELET VOLUME 9.3 FL (7.4-10.4); MONOCYTES % (AUTO) 7 % (0-12); NEUTROPHILS % (AUTO) 50 % (42-75); PLATELET COUNT 504 10^3/uL (130-400); WHITE BLOOD COUNT 6.9 10^3/uL (4.3-11.0)
[2021-02-16 10:54] LABS: BASOPHILS # (AUTO) 0.1 10^3/uL (0.0-0.1); BASOPHILS % (AUTO) 1 % (0-10); EOSINOPHILS # (AUTO) 0.2 10^3/uL (0.0-0.3); LYMPHOCYTES # (AUTO) 2.8 X 10^3 (1.0-4.0); MONOCYTES # (AUTO) 0.5 X 10^3 (0.0-1.0); NEUTROPHILS # (AUTO) 3.4 X 10^3 (1.8-7.8)
[2021-02-16 11:09] LABS: ALKALINE PHOSPHATASE 104 U/L (40-136); BUN/CREATININE RATIO 13; CALCIUM 9.3 MG/DL (8.5-10.1); CARBON DIOXIDE 25 MMOL/L (21-32); CHLORIDE 102 MMOL/L (98-107); GFR ESTIMATED > 60; GLUCOSE 107 MG/DL (70-105); SODIUM 138 MMOL/L (135-145)
[2021-02-16 11:10] LABS: ALANINE AMINOTRANSFERASE 31 U/L (0-55); ALBUMIN 4.4 GM/DL (3.2-4.5); BILIRUBIN,TOTAL 0.4 MG/DL (0.1-1.0); LIPASE 69 U/L (8-78); TOTAL PROTEIN 7.3 GM/DL (6.4-8.2)
[2021-02-16] MEDS ORDERED: ONDA4TAB11 PO (11:26)
[2021-02-16] MEDS ORDERED: PROC10TA10 PO (11:26)
[2021-02-16 11:40] VITALS: BP 146/79
== END 2021-02-16 11:45 | disposition home or self-care (01) ==
LOC: EDUNIT# 10:23 → ER FS 10:25
DX: K86.1 Other chronic pancreatitis (principal); E66.9 Obesity, unspecified; Z68.37 Body mass index [BMI] 37.0-37.9, adult; Z88.8 Allergy status to other drugs, medicaments and biological substances
CPT/HCPCS: 36415; 80053; 83690; 85025

== ENCOUNTER → 2021-08-04 | Outpatient (CLI) | payer MEDICARE, OTHER ==
[~2021-08-04] MED LIST changes: +PROC10TA10 PO
--- NOTE | 2021-08-04 12:26 | Diagnostic Imaging Report ---
INDICATION: Fall with left knee pain. TIME OF EXAM: 11:00 a.m. FINDINGS: Alignment is normal. Joint spaces are well-maintained. The articular surfaces are smooth. No fracture, dislocation or effusion is identified. IMPRESSION: No acute bony abnormality is detected. Dictated by: Dictated on workstation # [id number]
== END ==
LOC: RAD FS 10:38
PROVIDERS: ATTEND Nurse Practitioner
DX: S80.02XA Contusion of left knee, initial encounter (principal); W19.XXXA Unspecified fall, initial encounter
CPT/HCPCS: 73562

== ENCOUNTER 2022-05-16 21:01 | Emergency (ER) | payer MEDICARE, OTHER ==
[2022-05-16 21:01] VITALS: BP 140/99
--- NOTE | 2022-05-16 21:14 | ED Abdominal Pain ---
General Chief Complaint: Abdominal/GI Problems Stated Complaint: ABD PAIN Source of Information: Patient Exam Limitations: No Limitations History of Present Illness Date Seen by Provider: May 16, 2022 Time Seen by Provider: 21:00 Initial Comments Patient is a 62-year-old female with history of chronic pancreatitis who presents with acute onset mid epigastric pain starting approximately 1 hour prior to ED arrival. Patient pain is sharp, moderate to severe and nonradiating. It is associated with nausea and vomiting. No hematemesis coffee-ground emesis or melena. No chest pain palpitation shortness of breath fever or chills. Most recent flare was 1 year ago. Timing/Duration: 1-3 Hours Severity/Quality: Other Location: Other Radiation: Other Activities at Onset: Other Modifying Factors: Improves With Other Associated Symptoms: Other Allergies and Home Medications Allergies Coded Allergies: promethazine (Verified Allergy, Unknown, 06/23/19) Patient Home Medication List Home Medication List Reviewed: Yes Alprazolam (Alprazolam) 0.5 Mg Tablet, 0.5 MG PO TID PRN for ANXIETY, (Reported) Entered as Reported by: MARIBETH SANTIAGO on 09/17/19 0847 Cefdinir (Cefdinir) 300 Mg Capsule, 300 MG PO BID Prescribed by: JOHN MERRITT on 09/17/19 1033 Cholecalciferol (Vitamin D3) (Vitamin D3) 2,000 Unit Capsule, 2,000 UNIT PO DAILY, (Reported) Entered as Reported by: MARIBETH SANTIAGO on 09/17/19 0847 Citalopram Hydrobromide (Citalopram HBr) 20 Mg Tablet, 20 MG PO DAILY, (Reported) Entered as Reported by: MARIBETH SANTIAGO on 09/17/19 0847 Cyanocobalamin (Vitamin B-12) (Vitamin B-12) 1,000 Mcg Tablet, 1,000 MCG PO DAILY, (Reported) Entered as Reported by: MARIBETH SANTIAGO on 09/17/19 0847 Lipase/Protease/Amylase (Pancreaze Dr 10,500 Unit Cap) 1 Each Capsule.dr, 1 CAP PO BID, (Reported) Entered as Reported by: MARIBETH SANTIAGO on 09/17/19 0847 Magnesium Oxide (Magnesium) 400 Mg Tablet, 400 MG PO DAILY, (Reported) Entered as Reported by: MARIBETH SANTIAGO on 09/17/19 0847 Ondansetron (Ondansetron Odt) 4 Mg Tab.rapdis, 4 MG PO Q6H PRN for NAUSEA/VOMITING-1ST LINE Prescribed by: MINA ALTMAN on 02/16/21 1126 Oxycodone HCl/Acetaminophen (Oxycodone-Acetaminophen 10-325) 1 Each Tablet, 1 TAB PO Q4H PRN for PAIN-MODERATE (5-7), (Reported) Entered as Reported by: MARIBETH SANTIAGO on 09/17/19 0847 Prochlorperazine Maleate (Prochlorperazine Maleate) 10 Mg Tablet, 10 MG PO TID PRN for NAUSEA/VOMITING-2ND LINE Prescribed by: MINA ALTMAN on 02/16/21 112 Vitamin E Acetate (Vitamin E) 400 Unit Capsule, 400 UNIT PO DAILY, (Reported) Entered as Reported by: MARIBETH SANTIAGO on 09/17/19 0847 Review of Systems Review of Systems Constitutional: see HPI EENTM: See HPI Respiratory: See HPI Cardiovascular: See HPI Gastrointestinal: See HPI Genitourinary: See HPI Musculoskeletal: see HPI Skin: see HPI Psychiatric/Neurological: See HPI Endocrine: See HPI Hematologic/Lymphatic: See HPI All Other Systems Reviewed Negative Unless Noted: No Past Awiboqo-Zrptkp-Fapjlv Hx Patient Social History Tobacco Use?: No Seasonal Allergies Seasonal Allergies: No Past Medical History Surgeries: Yes Section, Gallbladder, Orthopedic, Tonsillectomy, Tubal Ligation Respiratory: No Cardiac: No 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 oz. 89.376161wy; 37.00 BMI Method:Stated General Appearance: WD/WN, no apparent distress HEENT: PERRL/EOMI, normal ENT inspection Respiratory: lungs clear Cardiovascular: normal peripheral pulses, regular rate, rhythm Gastrointestinal: soft, tenderness (epigastric pain/tenderness) Extremities: normal range of motion, non-tender Back: normal inspection Neurologic/Psychiatric: alert, oriented x 3 Skin: normal color, warm/dry Focused Exam Sepsis Stage: Ruled Out Progress/Results/Core Measures Results/Orders Lab Results Laboratory Tests Test 05/16/22 21:05 05/16/22 22:10 Range/Units White Blood Count 9.9 4.3-11.0 10^3/uL Red Blood Count 4.33 3.80-5.11 10^6/uL Hemoglobin 12.1 11.5-16.0 g/dL Hematocrit 36 35-52 % Mean Corpuscular Volume 83 80-99 fL Mean Corpuscular Hemoglobin 28 25-34 pg Mean Corpuscular Hemoglobin Concent 34 32-36 g/dL Red Cell Distribution Width 14.1 10.0-14.5 % Platelet Count 433 H 130-400 10^3/uL Mean Platelet Volume 10.3 9.0-12.2 fL Immature Granulocyte % (Auto) 0 % Neutrophils (%) (Auto) 42 42-75 % Lymphocytes (%) (Auto) 50 H 12-44 % Monocytes (%) (Auto) 7 0-12 % Eosinophils (%) (Auto) 1 0-10 % Basophils (%) (Auto) 1 0-10 % Neutrophils # (Auto) 4.1 1.8-7.8 10^3/uL Lymphocytes # (Auto) 4.9 H 1.0-4.0 10^3/uL Monocytes # (Auto) 0.7 0.0-1.0 10^3/uL Eosinophils # (Auto) 0.1 0.0-0.3 10^3/uL Basophils # (Auto) 0.1 0.0-0.1 10^3/uL Immature Granulocyte # (Auto) 0.0 0.0-0.1 10^3/uL Sodium Level 142 135-145 MMOL/L Potassium Level 4.0 3.6-5.0 MMOL/L Chloride Level 105 98-107 MMOL/L Carbon Dioxide Level 22 21-32 MMOL/L Anion Gap 15 H 5-14 MMOL/L Blood Urea Nitrogen 12 7-18 MG/DL Creatinine 0.80 0.60-1.30 MG/DL Estimat Glomerular Filtration Rate 84 BUN/Creatinine Ratio 15 Glucose Level 134 H 70-105 MG/DL Calcium Level 9.3 8.5-10.1 MG/DL Corrected Calcium 9.2 8.5-10.1 MG/DL Total Bilirubin 0.2 0.1-1.0 MG/DL Aspartate Amino Transf (AST/SGOT) 27 5-34 U/L Alanine Aminotransferase (ALT/SGPT) 17 0-55 U/L Alkaline Phosphatase 87 40-136 U/L Troponin I < 0.30 <0.30 NG/ML Total Protein 6.7 6.4-8.2 GM/DL Albumin 4.1 3.2-4.5 GM/DL Amylase Level 37 25-125 U/L Lipase 78 8-78 U/L Serum Alcohol < 10 <10 MG/DL Urine Color YELLOW Urine Clarity CLOUDY Urine pH 7.5 5-9 Urine Specific [place] 1.015 L 1.016-1.022 Urine Protein NEGATIVE NEGATIVE Urine Glucose (UA) NEGATIVE NEGATIVE Urine Ketones TRACE H NEGATIVE Urine Nitrite NEGATIVE NEGATIVE Urine Bilirubin NEGATIVE NEGATIVE Urine Urobilinogen 0.2 < = 1.0 MG/DL Urine Leukocyte Esterase 2+ H NEGATIVE Urine RBC (Auto) NEGATIVE NEGATIVE Urine RBC NONE /HPF Urine WBC 2-5 /HPF Urine Squamous Epithelial Cells 0-2 /HPF Urine Crystals NONE /LPF Urine Bacteria LARGE H /HPF Urine Casts NONE /LPF Urine Mucus SMALL H /LPF Urine Culture Indicated YES My Orders Willie - AMANDA SMITH DO Cbc With Automated Diff (05/16/22 21:12) Comprehensive Metabolic Panel (05/16/22 21:12) Troponin I Fs (05/16/22 21:12) Ekg Tracing (05/16/22 21:12) Ct Abdomen/Pelvis Wo (05/16/22 21:12) Lipase (05/16/22 21:12) Amylase (05/16/22 21:12) Alcohol (05/16/22 21:12) Urinalysis (05/16/22 21:12) Famotidine Injection (Pepcid Injection) (05/16/22 21:15) Prochlorperazine Injection (Compazine In (05/16/22 21:15) Hydromorphone Injection (Dilaudid Inject (05/16/22 21:15) Ns Iv 1000 Ml (Sodium Chloride 0.9%) (05/16/22 21:15) Urine Culture (05/16/22 22:10) Medications Given in ED Current Medications Medications Dose Ordered Sig/Luba Route Start Time Stop Time Status Last Admin Dose Admin Famotidine 40 mg ONCE ONCE IVP 05/16/22 21:15 05/16/22 21:16 DC 05/16/22 21:23 40 MG Hydromorphone HCl 1 mg ONCE ONCE IV 05/16/22 21:15 05/16/22 21:16 DC 05/16/22 21:27 1 MG Prochlorperazine Edisylate 10 mg ONCE ONCE IV 05/16/22 21:15 05/16/22 21:16 DC 05/16/22 21:22 5 MG Vital Signs/I&O 05/16/22 05/16/22 21:01 22:00 Temp 36.0 Pulse 98 93 Resp 18 15 B/P (MAP) 140/99 (113) 108/45 (66) Pulse Ox 100 94 O2 Delivery Room Air Room Air Departure Communication (Admissions) CT abdomen pelvis: Chronic gastritis and duodenitis. No acute findings per radiology report Epigastric abdominal pain findings of gastritis. Abdomen soft, nonsurgical ROM reevaluation. IV fluids, antiemetics and pain medication with improvement. Lab work improved and reassuring. Impression Primary Impression: Epigastric abdominal pain Disposition: HOME, SELF-CARE Condition: Stable Departure-Patient Inst. Decision time for Depature: 22:32 Referrals: MIMA ROSAS MD (PCP/Family) Primary Care Physician Patient Instructions: Severe Abdominal Pain, Peptic Ulcers Add. Discharge Instructions: You were evaluated in the emergency department for severe upper abdominal pain and nausea and vomiting. Lab and imaging studies were performed and are consistent with gastritis and duodenitis with possible peptic ulcer disease. Please resume home antacids and drink clear liquids only for the next 2 to 3 days. Discontinue Ibuprofen and take Compazine for nausea and Zofran as needed for additional relief. Follow-up with your GI specialist in the next 2 to 3 weeks. Return to the ED if new or worsening symptoms. All discharge instructions reviewed with patient and/or family. Voiced underst anding. Scripts Ondansetron (Ondansetron Odt) 4 Mg Tab.rapdis 4 MG PO Q6H, #10 TAB Prov: AMANDA SMITH DO 05/16/22 AMANDA SMITH DO May 16, 2022 21:14
[2022-05-16] MEDS ORDERED: HYDROmorphone 2 MG/ML VIAL (DILAUDID) IV ONE (21:15)
[2022-05-16] MEDS ORDERED: NS IV 1000 ML 1,000 ML IV SCH (21:15)
[2022-05-16] MEDS ORDERED: PROCHLORPERAZINE 10 MG/2ML INJ (COMPAZINE) IV ONE (21:15)
[2022-05-16] MEDS ORDERED: FAMOTIDINE 20MG/2ML IV (PEPCID) IVP ONE (21:15)
[2022-05-16 21:18] LABS: BASOPHILS # (AUTO) 0.1 10^3/uL (0.0-0.1); BASOPHILS % (AUTO) 1 % (0-10); EOSINOPHILS # (AUTO) 0.1 10^3/uL (0.0-0.3); EOSINOPHILS % (AUTO) 1 % (0-10); HEMATOCRIT 36 % (35-52); HEMOGLOBIN 12.1 g/dL (11.5-16.0); LYMPHOCYTES # (AUTO) 4.9 10^3/uL (1.0-4.0); LYMPHOCYTES % (AUTO) 50 % (12-44); MEAN CORPUSCULAR HEMOGLOBIN 28 pg (25-34); MEAN CORPUSCULAR HGB CONC 34 g/dL (32-36); MEAN CORPUSCULAR VOLUME 83 fL (80-99); MEAN PLATELET VOLUME 10.3 fL (9.0-12.2); MONOCYTES # (AUTO) 0.7 10^3/uL (0.0-1.0); MONOCYTES % (AUTO) 7 % (0-12); NEUTROPHILS # (AUTO) 4.1 10^3/uL (1.8-7.8); NEUTROPHILS % (AUTO) 42 % (42-75); PLATELET COUNT 433 10^3/uL (130-400); WHITE BLOOD COUNT 9.9 10^3/uL (4.3-11.0)
[2022-05-16 21:37] LABS: CARBON DIOXIDE 22 MMOL/L (21-32); CHLORIDE 105 MMOL/L (98-107); SODIUM 142 MMOL/L (135-145)
[2022-05-16 21:38] LABS: ALBUMIN 4.1 GM/DL (3.2-4.5); ALKALINE PHOSPHATASE 87 U/L (40-136); BILIRUBIN,TOTAL 0.2 MG/DL (0.1-1.0); BUN/CREATININE RATIO 15; CALCIUM 9.3 MG/DL (8.5-10.1); GFR ESTIMATED 84; GLUCOSE 134 MG/DL (70-105); TOTAL PROTEIN 6.7 GM/DL (6.4-8.2)
[2022-05-16 21:39] LABS: ALANINE AMINOTRANSFERASE 17 U/L (0-55); AMYLASE 37 U/L (25-125); LIPASE 78 U/L (8-78)
--- NOTE | 2022-05-16 22:01 | Diagnostic Imaging Report ---
PROCEDURE: CT abdomen and pelvis without contrast. TECHNIQUE: Multiple contiguous axial images were obtained through the abdomen and pelvis without the use of intravenous contrast. Auto Exposure Controls were utilized during the CT exam to meet ALARA standards for radiation dose reduction. DATE: May 16, 2022. COMPARISON: None. INDICATION: 62-year-old female, nausea and vomiting. FINDINGS: There are limitations for evaluation of the abdominal organs, neoplastic processes, abscess, and limited evaluation of the vasculature relating to the lack of intravenous contrast. The visualized portions of the lung bases are clear. The heart is not enlarged. There is no pericardial effusion. There is a small hiatal hernia. The liver is unremarkable in size and contour. The gallbladder is surgically absent. There is no biliary ductal dilation. Limited noncontrast assessment of the pancreatic parenchyma is unremarkable. The spleen is normal in size. There is a splenic calcification which may reflect a granuloma. The adrenal glands are unremarkable. Limited noncontrast assessment of the renal parenchyma is unremarkable. The urinary collecting systems are not distended. There is no identified renal or ureteral stone. Urinary bladder is unremarkable. The intestinal tract is not distended. The appendix is unremarkable. There is a small fat-containing umbilical hernia. There is fatty wall thickening at the level of the distal stomach and first portion of duodenum likely reflecting a chronic gastritis and duodenitis without evidence of active process. There is no free intraperitoneal air. There is no drainable fluid collection. There is no free fluid in the abdomen or pelvis. There are atherosclerotic calcifications noted. There is no identified abnormally enlarged lymph node in the abdomen or pelvis which meets CT size criteria for adenopathy. There are degenerative changes of the spine. There is no identified acute bony abnormality. IMPRESSION: CT abdomen and pelvis: 1. No identified acute abnormality in the abdomen or pelvis. 2. Chronic findings as above. Dictated by: Dictated on workstation # [id number]
[2022-05-16 22:20] LABS: BILIRUBIN,URINE NEGATIVE (NEGATIVE); CLARITY,URINE CLOUDY; COLOR,URINE YELLOW; GLUCOSE, URINE (UA) NEGATIVE (NEGATIVE); KETONES,URINE TRACE (NEGATIVE); LEUKOCYTE ESTERASE ,URINE 2+ (NEGATIVE); NITRITE,URINE NEGATIVE (NEGATIVE); PH,URINE 7.5 (5-9); PROTEIN,URINE NEGATIVE (NEGATIVE)
[2022-05-16 22:24] LABS: BACTERIA,URINE LARGE /HPF; SQUAMOUS EPITHELIAL CELL,UR 0-2 /HPF
[2022-05-16] MEDS ORDERED: ONDA4TAB11 PO (22:35)
== END 2022-05-16 22:40 | disposition home or self-care (01) ==
LOC: EDUNIT# 21:01 → ER FS 21:03
DX: R10.13 Epigastric pain (principal); R11.2 Nausea with vomiting, unspecified; Z90.49 Acquired absence of other specified parts of digestive tract
CPT/HCPCS: 36415; 74176; 80053; 81000; 82150; 83690; 84484; 85025; 87088; G0480; 80320; 93005

== ENCOUNTER 2022-05-21 01:11 | Emergency (ER) | payer MEDICARE, OTHER ==
[~2022-05-21] VITALS: Ht 154.9 cm; Wt 82.0 kg
[2022-05-21] MEDS ORDERED: morphine INJ 10 MG/ML 1ML (SYR OR VIAL) IVP STA ×2 (01:23→03:00)
[2022-05-21] MEDS ORDERED: FAMOTIDINE 20MG/2ML IV (PEPCID) IVP ONE (01:30)
[2022-05-21] MEDS ORDERED: ONDANSETRON 4 MG/2 ML (SDV) Z0FRAN IVP ONE (01:30)
[2022-05-21] MEDS ORDERED: NS IV 1000 ML 1,000 ML IV SCH (01:30)
--- NOTE | 2022-05-21 01:57 | ED Abdominal Pain ---
General Chief Complaint: Abdominal/GI Problems Stated Complaint: STOMACHE PAIN Nursing Triage Note: Pt has been having abd pain since last week when she was seen for the same thing. Has taken Zofran and compazine at home. Vomited in the parking lot on arrival. Moaning. States that Dilaudid is the only thing that helps her pain. Source of Information: Patient Exam Limitations: No Limitations History of Present Illness Date Seen by Provider: May 21, 2022 Time Seen by Provider: 01:30 Initial Comments Patient is a 62-year-old female history of chronic pancreatitis, duodenitis with gastritis who was evaluated in this emergency department approximately 5 days ago by this provider for duodenitis who presents with acute worsening of mid epigastric abdominal pain starting several hours prior to ED arrival. Pain is moderate to severe is worse with eating. Patient denies alcohol consumption. No hematemesis coffee-ground emesis. Patient did vomit dark brown liquid prior to ED arrival. No melena hematochezia. No fever chills or sweats. No flank pain. No other acute symptoms or complaints. Timing/Duration: 4-6 Hours Severity/Quality: Moderate, Burning Location: Epigastric Radiation: Other Activities at Onset: Other Modifying Factors: Improves With Other Allergies and Home Medications Allergies Coded Allergies: promethazine (Verified Allergy, Unknown, 06/23/19) Patient Home Medication List Home Medication List Reviewed: Yes Alprazolam (Alprazolam) 0.5 Mg Tablet, 0.5 MG PO TID PRN for ANXIETY, (Reported) Entered as Reported by: MARIBETH SANTIAGO on 09/17/19 0847 Cefdinir (Cefdinir) 300 Mg Capsule, 300 MG PO BID Prescribed by: JOHN MERRITT on 09/17/19 1033 Cholecalciferol (Vitamin D3) (Vitamin D3) 2,000 Unit Capsule, 2,000 UNIT PO DAILY, (Reported) Entered as Reported by: MARIBETH SANTIAGO on 09/17/19 0847 Citalopram Hydrobromide (Citalopram HBr) 20 Mg Tablet, 20 MG PO DAILY, (Reported) Entered as Reported by: MARIBETH SANTIAGO on 09/17/19 0847 Cyanocobalamin (Vitamin B-12) (Vitamin B-12) 1,000 Mcg Tablet, 1,000 MCG PO DAILY, (Reported) Entered as Reported by: MARIBETH SANTIAGO on 09/17/19 0847 Lipase/Protease/Amylase (Pancreaze 10,500 Unit Cap) 1 Each Capsule., 1 CAP PO BID, (Reported) Entered as Reported by: MARIBETH SANTIAGO on 09/17/19 0847 Magnesium Oxide (Magnesium) 400 Mg Tablet, 400 MG PO DAILY, (Reported) Entered as Reported by: MARIBETH SANTIAGO on 09/17/19 0847 Ondansetron (Ondansetron Odt) 4 Mg Tab.rapdis, 4 MG PO Q6H PRN for NAUSEA/VOMITING-1ST LINE Prescribed by: MINA ALTMAN on 02/16/21 1126 Ondansetron (Ondansetron Odt) 4 Mg Tab.rapdis, 4 MG PO Q6H Prescribed by: AMANDA SMITH on 05/16/22 2235 Oxycodone HCl/Acetaminophen (Oxycodone-Acetaminophen 10-325) 1 Each Tablet, 1 T AB PO Q4H PRN for PAIN-MODERATE (5-7), (Reported) Entered as Reported by: MARIBETH SANTIAGO on 09/17/19 0847 Prochlorperazine Maleate (Prochlorperazine Maleate) 10 Mg Tablet, 10 MG PO TID PRN for NAUSEA/VOMITING-2ND LINE Prescribed by: MINA MOREIRAYART on 02/16/21 1126 Vitamin E Acetate (Vitamin E) 400 Unit Capsule, 400 UNIT PO DAILY, (Reported) Entered as Reported by: MARIBETH SANTIAGO on 09/17/19 0847 Review of Systems Review of Systems Constitutional: see HPI EENTM: See HPI Respiratory: See HPI Gastrointestinal: See HPI Genitourinary: See HPI Musculoskeletal: see HPI Skin: see HPI Psychiatric/Neurological: See HPI Endocrine: See HPI Hematologic/Lymphatic: See HPI Past Wjfgkgj-Jjpmee-Tphnhg Hx Patient Social History Tobacco Use?: No Use of E-Cig and/or Vaping dev: No Substance use?: No Alcohol Use?: Yes Alcohol Frequency: Rarely Pt feels they are or have been: No Immunizations Up To Date First/Initial COVID19 Vaccinat: Moderna Second COVID19 Vaccination Vic: Moderna Seasonal Allergies Seasonal Allergies: No Past Medical History Surgeries: Yes Section, Gallbladder, Orthopedic, Tonsillectomy, Tubal Ligation Respiratory: No Cardiac: No 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 oz. 89.601038ce; 34.00 BMI Method:Stated General Appearance: WD/WN, no apparent distress HEENT: PERRL/EOMI, normal ENT inspection Neck: supple Respiratory: lungs clear, normal breath sounds Cardiovascular: normal peripheral pulses, regular rate, rhythm, no edema Gastrointestinal: soft, other (Epigastric pain/tenderness. No rebound rigidity or guarding) Extremities: non-tender, no calf tenderness Back: no CVA tenderness Focused Exam Sepsis Stage: Ruled Out Progress/Results/Core Measures Results/Orders Lab Results Laboratory Tests Test 05/21/22 01:38 Range/Units White Blood Count 8.8 4.3-11.0 10^3/uL Red Blood Count 4.92 3.80-5.11 10^6/uL Hemoglobin 13.7 11.5-16.0 g/dL Hematocrit 40 35-52 % Mean Corpuscular Volume 81 80-99 fL Mean Corpuscular Hemoglobin 28 25-34 pg Mean Corpuscular Hemoglobin Concent 34 32-36 g/dL Red Cell Distribution Width 13.6 10.0-14.5 % Platelet Count 418 H 130-400 10^3/uL Mean Platelet Volume 10.6 9.0-12.2 fL Immature Granulocyte % (Auto) 0 % Neutrophils (%) (Auto) 43 42-75 % Lymphocytes (%) (Auto) 48 H 12-44 % Monocytes (%) (Auto) 7 0-12 % Eosinophils (%) (Auto) 2 0-10 % Basophils (%) (Auto) 1 0-10 % Neutrophils # (Auto) 3.8 1.8-7.8 10^3/uL Lymphocytes # (Auto) 4.2 H 1.0-4.0 10^3/uL Monocytes # (Auto) 0.6 0.0-1.0 10^3/uL Eosinophils # (Auto) 0.2 0.0-0.3 10^3/uL Basophils # (Auto) 0.1 0.0-0.1 10^3/uL Immature Granulocyte # (Auto) 0.0 0.0-0.1 10^3/uL Sodium Level 138 135-145 MMOL/L Potassium Level 3.4 L 3.6-5.0 MMOL/L Chloride Level 102 98-107 MMOL/L Carbon Dioxide Level 23 21-32 MMOL/L Anion Gap 13 5-14 MMOL/L Blood Urea Nitrogen 8 7-18 MG/DL Creatinine 0.79 0.60-1.30 MG/DL Estimat Glomerular Filtration Rate 85 BUN/Creatinine Ratio 10 Glucose Level 107 H 70-105 MG/DL Calcium Level 9.5 8.5-10.1 MG/DL Corrected Calcium 9.2 8.5-10.1 MG/DL Total Bilirubin 0.5 0.1-1.0 MG/DL Aspartate Amino Transf (AST/SGOT) 16 5-34 U/L Alanine Aminotransferase (ALT/SGPT) 13 0-55 U/L Alkaline Phosphatase 89 40-136 U/L C-Reactive Protein < 0.30 <0.50 MG/DL Total Protein 7.1 6.4-8.2 GM/DL Albumin 4.4 3.2-4.5 GM/DL Lipase 82 H 8-78 U/L My Orders Orders - AMANDA SMITH DO Cbc With Automated Diff (05/21/22 01:23) Comprehensive Metabolic Panel (05/21/22:23) Lipase (05/21/22:23) Ns Iv 1000 Ml (Sodium Chloride 0.9%) (05/21/22 01:30) Famotidine Injection (Pepcid Injection) (05/21/22 01:30) Urinalysis (05/21/22:23) Crp Fs (05/21/22:23) Morphine Injection (Morphine Injection (05/21/22:23) Ondansetron Injection (Zofran Injectio (05/21/22 01:30) Medications Given in ED Current Medications Medications Dose Ordered Sig/Luba Route Start Time Stop Time Status Last Admin Dose Admin Famotidine 40 mg ONCE ONCE IVP 05/21/22 01:30 9/5/22 01:31 DC 05/21/22 01:50 40 MG Ondansetron HCl 4 mg ONCE ONCE IVP 05/21/22 01:30 05/21/22 01:31 DC 05/21/22 01:50 4 MG Vital Signs/I&O 05/21/22 05/21/22 01:24 02:45 Temp 35.3 Pulse 70 78 Resp 18 16 B/P (MAP) 145/100 (115) 142/80 (100) Pulse Ox 99 96 O2 Delivery Room Air Room Air Blood Pressure Mean: 115 Departure Communication (Admissions) Epigastric pain/minimal tenderness. Recent labs and imaging studies reviewed. Symptoms improved with treatment in the emergency department. Abdomen remains soft, nonsurgical on repeat evaluation. Recommendations for continued supportive care watchful waiting with PCP follow-up. Return precautions reviewed. Patient verbalizes understanding and agreement discharge instructions prior department Impression Primary Impression: Epigastric abdominal pain Disposition: HOME, SELF-CARE Condition: Stable Departure-Patient Inst. Decision time for Depature: 01:57 Referrals: MIMA ROSAS MD (PCP/Family) Primary Care Physician Patient Instructions: Severe Abdominal Pain, Nausea and Vomiting, Adult (DC) Add. Discharge Instructions: You were evaluated in the emergency department for abdominal pain. Labs were reviewed and are nondiagnostic. Your symptoms are most consistent with duodenitis and gastritis. Please continue home medications and take newly prescribed medications as directed. Follow-up with your PCP and GI physician for reevaluation in 1-2 days. All discharge instructions reviewed with patient and/or family. Voiced understanding. Scripts Esomeprazole Magnesium (Nexium) 40 Mg Cap 40 MG PO BID, #60 CAP Prov: AMANDA SMITH DO 05/21/22 AMANDA SMITH DO May 21, 2022 01:57
[2022-05-21 02:23] LABS: BASOPHILS # (AUTO) 0.1 10^3/uL (0.0-0.1); BASOPHILS % (AUTO) 1 % (0-10); EOSINOPHILS # (AUTO) 0.2 10^3/uL (0.0-0.3); EOSINOPHILS % (AUTO) 2 % (0-10); HEMATOCRIT 40 % (35-52); HEMOGLOBIN 13.7 g/dL (11.5-16.0); LYMPHOCYTES # (AUTO) 4.2 10^3/uL (1.0-4.0); LYMPHOCYTES % (AUTO) 48 % (12-44); MEAN CORPUSCULAR HEMOGLOBIN 28 pg (25-34); MEAN CORPUSCULAR HGB CONC 34 g/dL (32-36); MEAN CORPUSCULAR VOLUME 81 fL (80-99); MEAN PLATELET VOLUME 10.6 fL (9.0-12.2); MONOCYTES # (AUTO) 0.6 10^3/uL (0.0-1.0); MONOCYTES % (AUTO) 7 % (0-12); NEUTROPHILS # (AUTO) 3.8 10^3/uL (1.8-7.8); NEUTROPHILS % (AUTO) 43 % (42-75); PLATELET COUNT 418 10^3/uL (130-400); WHITE BLOOD COUNT 8.8 10^3/uL (4.3-11.0)
[2022-05-21 02:41] LABS: ALANINE AMINOTRANSFERASE 13 U/L (0-55); ALBUMIN 4.4 GM/DL (3.2-4.5); ALKALINE PHOSPHATASE 89 U/L (40-136); BILIRUBIN,TOTAL 0.5 MG/DL (0.1-1.0); BUN/CREATININE RATIO 10; CALCIUM 9.5 MG/DL (8.5-10.1); CARBON DIOXIDE 23 MMOL/L (21-32); CHLORIDE 102 MMOL/L (98-107); CREATININE SERUM 0.79 MG/DL (0.60-1.30); GFR ESTIMATED 85; GLUCOSE 107 MG/DL (70-105); LIPASE 82 U/L (8-78); POTASSIUM 3.4 MMOL/L (3.6-5.0); SODIUM 138 MMOL/L (135-145); TOTAL PROTEIN 7.1 GM/DL (6.4-8.2)
[2022-05-21] MEDS ORDERED: NF-ESOM40C PO (02:49)
[2022-05-21 03:29] VITALS: BP 137/86
== END 2022-05-21 03:29 | disposition home or self-care (01) ==
LOC: EDUNIT# 01:11 → ER FS 01:13
DX: R10.13 Epigastric pain (principal); R11.10 Vomiting, unspecified; Z90.49 Acquired absence of other specified parts of digestive tract
CPT/HCPCS: 36415; 80053; 83690; 85025; 86141

== ENCOUNTER 2022-12-07 06:43 | Emergency (ER) | payer MEDICARE, OTHER ==
[~2022-12-07 06:43] MED LIST changes: +NF-ESOM40C PO
[2022-12-07] MEDS ORDERED: PROMETHAZINE INJ 25 MG/ML (PHENERGAN) AMP IVP STA (06:46)
[2022-12-07] MEDS ORDERED: LACTATED RINGERS 1,000 ML IV STA (06:46)
--- NOTE | 2022-12-07 06:52 | ED Abdominal Pain ---
General Chief Complaint: Abdominal/GI Problems Stated Complaint: ABD PAIN History of Present Illness Date Seen by Provider: Dec 07, 2022 Time Seen by Provider: 06:51 Initial Comments 62-year-old female brought in by EMS. History is obtained per patient and EMS. Patient has a history of pancreatitis. About an hour ago she started having epigastric pain and vomiting is consistent with her previous flares of pancreatitis. She was given fentanyl and Zofran in route by EMS. She denies any alcohol use but does report marijuana use. Patient reports she was asleep when she was awakened by the pain. She is dry heaving upon arrival. (MAYITO BOYLE DO) Allergies and Home Medications Allergies Coded Allergies: promethazine (Verified Allergy, Unknown, 06/23/19) Patient Home Medication List Home Medication List Reviewed: Yes (GLORIA SANDERSON MD) Alprazolam (Alprazolam) 0.5 Mg Tablet, 0.5 MG PO TID PRN for ANXIETY, (Reported) Entered as Reported by: MARIBETH SANTIAGO on 09/17/19 0847 Cefdinir (Cefdinir) 300 Mg Capsule, 300 MG PO BID Prescribed by: JOHN MERRITT on 09/17/19 1033 Cholecalciferol (Vitamin D3) (Vitamin D3) 2,000 Unit Capsule, 2,000 UNIT PO DAILY, (Reported) Entered as Reported by: MARIBETH SANTIAGO on 09/17/19 0847 Citalopram Hydrobromide (Citalopram HBr) 20 Mg Tablet, 20 MG PO DAILY, (Reported) Entered as Reported by: MARIBETH SANTIAGO on 09/17/19 0847 Cyanocobalamin (Vitamin B-12) (Vitamin B-12) 1,000 Mcg Tablet, 1,000 MCG PO DAILY, (Reported) Entered as Reported by: MARIBETH SANTIAGO on 09/17/19 0847 Esomeprazole Magnesium (Nexium) 40 Mg Cap, 40 MG PO BID Prescribed by: AMANDA SMITH on 05/21/22 0249 Lipase/Protease/Amylase (Pancreaze Dr 10,500 Unit Cap) 1 Each Capsule.dr, 1 CAP PO BID, (Reported) Entered as Reported by: MARIBETH SANTIAGO on 09/17/19 0847 Magnesium Oxide (Magnesium) 400 Mg Tablet, 400 MG PO DAILY, (Reported) Entered as Reported by: MARIBETH SANTIAGO on 09/17/19 0847 Ondansetron (Ondansetron Odt) 4 Mg Tab.rapdis, 4 MG PO Q6H PRN for NAUSEA/VOMITING-1ST LINE Prescribed by: MINA ALTMAN on 02/16/21 1126 Ondansetron (Ondansetron Odt) 4 Mg Tab.rapdis, 4 MG PO Q6H Prescribed by: AMANDA SMITH on 05/16/22 2235 Oxycodone HCl (Oxycodone HCl) 5 Mg Tablet, 5 MG PO Q6H PRN for PAIN-SEVERE (8- 10) Prescribed by: GLORIA SANDERSON on 12/07/22 0740 Oxycodone HCl/Acetaminophen (Oxycodone-Acetaminophen 10-325) 1 Each Tablet, 1 TAB PO Q4H PRN for PAIN-MODERATE (5-7), (Reported) Entered as Reported by: MARIBETH SANTIAGO on 09/17/19 0847 Prochlorperazine Maleate (Prochlorperazine Maleate) 10 Mg Tablet, 10 MG PO TID PRN for NAUSEA/VOMITING-2ND LINE Prescribed by: MINA ALTMAN on 02/16/21 1126 Prochlorperazine Maleate (Compazine) 10 Mg Tablet, 10 MG PO Q8H PRN for NAUSEA/VOMITING-2ND LINE Prescribed by: GLORIA SANDERSON on 12/07/22 0739 Prochlorperazine Maleate (Compazine) 25 Mg Supp.rect, 25 MG RC Q6H PRN for NAUSE A/VOMITING-3RD LINE Prescribed by: GLORIA SANDERSON on 12/07/22 1540 Vitamin E Acetate (Vitamin E) 400 Unit Capsule, 400 UNIT PO DAILY, (Reported) Entered as Reported by: MARIBETH SANTIAGO on 09/17/19 0847 Review of Systems Review of Systems Constitutional: no symptoms reported EENTM: No Symptoms Reported Respiratory: No Symptoms Reported Gastrointestinal: Abdominal Pain, Nausea; Denies Vomiting; Other (Dry Heaving) Musculoskeletal: no symptoms reported Skin: no symptoms reported Psychiatric/Neurological: No Symptoms Reported Endocrine: No Symptoms Reported (MAYITO BOYLE DO) Past Pmfipsq-Cfsuua-Llpryg Hx Immunizations Up To Date First/Initial COVID19 Vaccinat: Moderna Second COVID19 Vaccination Vic: Moderna (MAYITO BOYLE DO) Seasonal Allergies Seasonal Allergies: No (MAYITO BOYLE DO) Past Medical History Surgeries: Yes Section, Gallbladder, Orthopedic, Tonsillectomy, Tubal Ligation Respiratory: No Cardiac: No 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 oz. 89.099693zm; 34.00 BMI Method:Stated General Appearance: WD/WN, no apparent distress Respiratory: lungs clear, normal breath sounds Cardiovascular: normal peripheral pulses, regular rate, rhythm Gastrointestinal: soft, tenderness (epigastric ) Extremities: non-tender, normal inspection Neurologic/Psychiatric: alert, normal mood/affect, oriented x 3 Skin: normal color, warm/dry (MAYITO BOYLE DO) Progress/Results/Core Measures Results/Orders Lab Results Laboratory Tests Test 12/07/22 06:55 Range/Units White Blood Count 11.4 H 4.3-11.0 10^3/uL Red Blood Count 4.67 3.80-5.11 10^6/uL Hemoglobin 12.8 11.5-16.0 g/dL Hematocrit 39 35-52 % Mean Corpuscular Volume 82 80-99 fL Mean Corpuscular Hemoglobin 27 25-34 pg Mean Corpuscular Hemoglobin Concent 33 32-36 g/dL Red Cell Distribution Width 14.1 10.0-14.5 % Platelet Count 415 H 130-400 10^3/uL Mean Platelet Volume 9.8 9.0-12.2 fL Immature Granulocyte % (Auto) 0 % Neutrophils (%) (Auto) 68 42-75 % Lymphocytes (%) (Auto) 25 12-44 % Monocytes (%) (Auto) 6 0-12 % Eosinophils (%) (Auto) 1 0-10 % Basophils (%) (Auto) 1 0-10 % Neutrophils # (Auto) 7.8 1.8-7.8 10^3/uL Lymphocytes # (Auto) 2.8 1.0-4.0 10^3/uL Monocytes # (Auto) 0.6 0.0-1.0 10^3/uL Eosinophils # (Auto) 0.1 0.0-0.3 10^3/uL Basophils # (Auto) 0.1 0.0-0.1 10^3/uL Immature Granulocyte # (Auto) 0.0 0.0-0.1 10^3/uL Sodium Level 137 135-145 MMOL/L Potassium Level 3.9 3.6-5.0 MMOL/L Chloride Level 100 98-107 MMOL/L Carbon Dioxide Level 20 L 21-32 MMOL/L Anion Gap 17 H 5-14 MMOL/L Blood Urea Nitrogen 12 7-18 MG/DL Creatinine 0.81 0.60-1.30 MG/DL Estimat Glomerular Filtration Rate 83 BUN/Creatinine Ratio 15 Glucose Level 174 H 70-105 MG/DL Calcium Level 9.6 8.5-10.1 MG/DL Corrected Calcium 9.4 8.5-10.1 MG/DL Total Bilirubin 0.4 0.1-1.0 MG/DL Aspartate Amino Transf (AST/SGOT) 25 5-34 U/L Alanine Aminotransferase (ALT/SGPT) 29 0-55 U/L Alkaline Phosphatase 110 40-136 U/L Total Protein 7.2 6.4-8.2 GM/DL Albumin 4.3 3.2-4.5 GM/DL Lipase 133 H 8-78 U/L (GLORIA SANDERSON MD) My Orders Orders - GLORIA SANDERSON MD Prochlorperazine Injection (Compazine In (12/07/22 07:45) (GLORIA SANDERSON MD) Medications Given in ED (GLORIA SANDERSON MD) Vital Signs/I&O 12/07/22 12/07/22 06:46 08:11 Pulse 95 78 Resp 20 16 B/P (MAP) 109/76 (87) 120/55 Pulse Ox 99 97 O2 Delivery Room Air Room Air (GLORIA SANDERSON MD) Progress Progress Note : Progress Note Received the patient in signout for epigastric pain and nausea and vomiting. An IV was placed and labs were drawn including LFTs. Her lipase is slightly elevated, but it is not 3 times the upper limits of normal, which is not consistent with pancreatitis. I did a repeat abdominal exam showing some very mild epigastric tenderness but no signs of peritonitis. After nausea medicines here, the patient was looking better. Pain better controlled after morphine. I discussed with chronic pancreatitis, we can try to manage this at home with medications. Prescription sent for nausea medicine and pain medicine. Discussed doing clear liquids for the next couple of days. If things do not improve she can come back to the ER. She was then discharged home in stable condition with strict return precautions (GLORIA SANDERSON MD) Departure Impression Primary Impression: Chronic recurrent pancreatitis Disposition: HOME, SELF-CARE Condition: Stable Departure-Patient Inst. Decision time for Depature: 08:00 (GLORIA SANDERSON MD) Referrals: MIMA FRANK MD (PCP/Family) Primary Care Physician Patient Instructions: Chronic Pancreatitis (DC) Add. Discharge Instructions: This likely is an aspect of chronic pancreatitis. We do not see any evidence of acute pancreatitis based on your labs. You can try Tylenol for pain at home, if you have pain on top of that then you can try the oxycodone. Try the Zofran initially at home, and if that is not working, Phenergan suppository was sent as an option as well. Follow-up with Dr. Frank in the next couple of days. There is an association with marijuana and vomiting and epigastric discomfort as well, we recommend abstaining for couple months to see if that helps. Scripts Prochlorperazine Maleate (Compazine) 25 Mg Supp.rect 25 MG RC Q6H PRN for NAUSEA/VOMITING-3RD LINE for 5 Days, #20 SUPP.RECT Prov: GLORIA SANDERSON MD 12/07/22 Prochlorperazine Maleate (Compazine) 10 Mg Tablet 10 MG PO Q8H PRN for NAUSEA/VOMITING-2ND LINE for 4 Days, #12 TAB Prov: GLORIA SANDERSON MD 12/07/22 Oxycodone HCl (Oxycodone HCl) 5 Mg Tablet 5 MG PO Q6H PRN for PAIN-SEVERE (8-10) for 3 Days, #12 TAB Prov: GLORIA SANDERSON MD 12/07/22 Work/School Note: Family Work Note, Patient Received Medical Care In the Emergency Department On: Dec 07, 2022 Patient Will Be Able to Return to Work/School On: Dec 08, 2022 Work Release Form Date Seen in the Emergency Department: Dec 07, 2022 Return to Work: Dec 08, 2022 Restrictions: Return-No Vomiting(24hrs) MAYITO BOYLE DO Dec 07, 2022 06:52 GLORIA SANDERSON MD Dec 07, 2022 07:39
[2022-12-07] MEDS ORDERED: diphenhydrAMINE 50 MG/ML INJ (BENADRYL) IV STA (06:54)
[2022-12-07] MEDS ORDERED: morphine INJ 10 MG/ML 1ML (SYR OR VIAL) IVP ONE (07:00)
[2022-12-07] MEDS ORDERED: HALOPERIDOL 5 MG/ML (HALDOL) VIAL IV ONE (07:00)
[2022-12-07 07:08] LABS: BASOPHILS # (AUTO) 0.1 10^3/uL (0.0-0.1); BASOPHILS % (AUTO) 1 % (0-10); EOSINOPHILS # (AUTO) 0.1 10^3/uL (0.0-0.3); EOSINOPHILS % (AUTO) 1 % (0-10); HEMATOCRIT 39 % (35-52); HEMOGLOBIN 12.8 g/dL (11.5-16.0); LYMPHOCYTES # (AUTO) 2.8 10^3/uL (1.0-4.0); LYMPHOCYTES % (AUTO) 25 % (12-44); MEAN CORPUSCULAR HEMOGLOBIN 27 pg (25-34); MEAN CORPUSCULAR HGB CONC 33 g/dL (32-36); MEAN CORPUSCULAR VOLUME 82 fL (80-99); MEAN PLATELET VOLUME 9.8 fL (9.0-12.2); MONOCYTES # (AUTO) 0.6 10^3/uL (0.0-1.0); MONOCYTES % (AUTO) 6 % (0-12); NEUTROPHILS # (AUTO) 7.8 10^3/uL (1.8-7.8); NEUTROPHILS % (AUTO) 68 % (42-75); PLATELET COUNT 415 10^3/uL (130-400); WHITE BLOOD COUNT 11.4 10^3/uL (4.3-11.0)
[2022-12-07 07:23] LABS: BILIRUBIN,TOTAL 0.4 MG/DL (0.1-1.0); CALCIUM 9.6 MG/DL (8.5-10.1); CREATININE SERUM 0.81 MG/DL (0.60-1.30); POTASSIUM 3.9 MMOL/L (3.6-5.0)
[2022-12-07 07:24] LABS: ALBUMIN 4.3 GM/DL (3.2-4.5); TOTAL PROTEIN 7.2 GM/DL (6.4-8.2)
[2022-12-07] MEDS ORDERED: PROC-1 PO (07:39)
[2022-12-07] MEDS ORDERED: OXYC5TAB PO (07:39)
[2022-12-07] MEDS ORDERED: PROCHLORPERAZINE 10 MG/2ML INJ (COMPAZINE) IV ONE (07:45)
[2022-12-07 08:11] VITALS: BP 120/55
[2022-12-07] MEDS ORDERED: PROC25SU27 RC (15:40)
== END 2022-12-07 08:13 | disposition home or self-care (01) ==
LOC: EDUNIT# 06:43 → ER FS 06:45
DX: K86.1 Other chronic pancreatitis (principal)
CPT/HCPCS: 36415; 80053; 83690; 85025

== ENCOUNTER 2023-05-18 21:31 | Emergency (ER) | payer MEDICARE, OTHER ==
[~2023-05-18] VITALS: Ht 154.9 cm; Wt 80.0 kg
[~2023-05-18 21:31] MED LIST changes: +OXYC5TAB PO; +PROC-1 PO; +PROC25SU27 RC
[2023-05-18] MEDS ORDERED: NS IV 1000 ML 1,000 ML IV SCH (22:00)
[2023-05-18] MEDS ORDERED: fentaNYL INJECTION 100 MCG/2 ML VIAL IVP ONE (22:00)
[2023-05-18] MEDS ORDERED: ONDANSETRON INJECTION 4 MG/2 ML (SDV) IVP ONE (22:00)
[2023-05-18 22:15] LABS: BASOPHILS % (AUTO) 0 % (0-10); EOSINOPHILS % (AUTO) 0 % (0-10); HEMATOCRIT 37 % (35-52); LYMPHOCYTES # (AUTO) 3.3 10^3/uL (1.0-4.0); LYMPHOCYTES % (AUTO) 24 % (12-44); MEAN CORPUSCULAR HEMOGLOBIN 28 pg (25-34); MEAN CORPUSCULAR HGB CONC 35 g/dL (32-36); MEAN CORPUSCULAR VOLUME 79 fL (80-99); MEAN PLATELET VOLUME 10.1 fL (9.0-12.2); MONOCYTES # (AUTO) 0.8 10^3/uL (0.0-1.0); MONOCYTES % (AUTO) 6 % (0-12); NEUTROPHILS # (AUTO) 9.7 10^3/uL (1.8-7.8); NEUTROPHILS % (AUTO) 70 % (42-75); PLATELET COUNT 429 10^3/uL (130-400); WHITE BLOOD COUNT 13.9 10^3/uL (4.3-11.0)
[2023-05-18 22:34] LABS: ALKALINE PHOSPHATASE 80 U/L (40-136); BILIRUBIN,TOTAL 1.4 MG/DL (0.1-1.0); BUN/CREATININE RATIO 13; CALCIUM 9.5 MG/DL (8.5-10.1); CARBON DIOXIDE 17 MMOL/L (21-32); CHLORIDE 100 MMOL/L (98-107); CREATININE SERUM 0.91 MG/DL (0.60-1.30); GFR ESTIMATED 71; GLUCOSE 110 MG/DL (70-105); POTASSIUM 2.9 MMOL/L (3.6-5.0); SODIUM 134 MMOL/L (135-145)
[2023-05-18 22:35] LABS: ALANINE AMINOTRANSFERASE 49 U/L (0-55); ALBUMIN 4.5 GM/DL (3.2-4.5); LIPASE 34 U/L (8-78)
--- NOTE | 2023-05-18 23:30 | ED Abdominal Pain ---
General Chief Complaint: Abdominal/GI Problems Stated Complaint: VOMITING|PAIN Nursing Triage Note: Pt presents per POV ambulating to ED 6 reporting CC: abd pain with vomiting. Pt and spouse report severe abd pain returns with vomting and has taken home RX Zofran and Compazine 1 hr ago. Pt and spouse together provide hx have been in [place] ER four times since starting 05/16/23 for same. They state she does have normal lab numbers and reported not in pancreatitis and was given fluids. Upon their last return [place] had no available hospital beds and she was discharged to home to try her Rx meds. History of Present Illness Date Seen by Provider: May 18, 2023 Time Seen by Provider: 21:38 Initial Comments 63 yr F with PMH of Chronic pancreatitis, is here with c/o severe LUQ pain, and has been seen for the same complaints at [facility] 4 s eparate times since 05/16/2023. Patient was there last night and had a CT scan done and was sent home. Patient takes Creon and tramadol at home. Patient has been persistently nauseous and vomiting with 10/10 left upper quadrant pain without any relief. Patient has not had anything to eat or drink since since the pain started. Denies diarrhea, chest pain, shortness of breath, fever and chills. Allergies and Home Medications Allergies Coded Allergies: promethazine (Verified Allergy, Unknown, 06/23/19) Patient Home Medication List Home Medication List Reviewed: Yes Alprazolam (Alprazolam) 0.5 Mg Tablet, 0.5 MG PO TID PRN for ANXIETY, (Reported) Entered as Reported by: MARIBETH SANTIAGO on 09/17/19 0847 Cefdinir (Cefdinir) 300 Mg Capsule, 300 MG PO BID Prescribed by: JOHN MERRITT on 09/17/19 1033 Cholecalciferol (Vitamin D3) (Vitamin D3) 2,000 Unit Capsule, 2,000 UNIT PO DAILY, (Reported) Entered as Reported by: MARIBETH SANTIAGO on 09/17/19 0847 Citalopram Hydrobromide (Citalopram HBr) 20 Mg Tablet, 20 MG PO DAILY, (Reported) Entered as Reported by: MARIBETH SANTIAGO on 09/17/19 0847 Cyanocobalamin (Vitamin B-12) (Vitamin B-12) 1,000 Mcg Tablet, 1,000 MCG PO DAILY, (Reported) Entered as Reported by: MARIBETH SANTIAGO on 09/17/19 0847 Esomeprazole Magnesium (Nexium) 40 Mg Cap, 40 MG PO BID Prescribed by: AMANDA SMITH on 05/21/22 0249 Lipase/Protease/Amylase (Pancreaze Dr 10,500 Unit Cap) 1 Each Capsule.dr, 1 CAP PO BID, (Reported) Entered as Reported by: MARIBETH SANTIAGO on 09/17/19 0847 Magnesium Oxide (Magnesium) 400 Mg Tablet, 400 MG PO DAILY, (Reported) Entered as Reported by: MARIBETH SANTIAGO on 09/17/19 0847 Ondansetron (Ondansetron Odt) 4 Mg Tab.rapdis, 4 MG PO Q6H PRN for NAUSEA/VOMITING-1ST LINE Prescribed by: MINA ALTMAN on 02/16/21 1126 Ondansetron (Ondansetron Odt) 4 Mg Tab.rapdis, 4 MG PO Q6H Prescribed by: AMANDA SMITH on 05/16/22 2235 Oxycodone HCl (Oxycodone HCl) 5 Mg Tablet, 5 MG PO Q6H PRN for PAIN-SEVERE (8- 10) Prescribed by: GLORIA SANDERSON on 12/07/22 0740 Oxycodone HCl/Acetaminophen (Oxycodone-Acetaminophen 10-325) 1 Each Tablet, 1 TAB PO Q4H PRN for PAIN-MODERATE (5-7), (Reported) Entered as Reported by: MARIBETH SANTIAGO on 09/17/19 0847 Prochlorperazine Maleate (Prochlorperazine Maleate) 10 Mg Tablet, 10 MG PO TID PRN for NAUSEA/VOMITING-2ND LINE Prescribed by: MINA GARCIART on 02/16/21 1126 Prochlorperazine Maleate (Compazine) 10 Mg Tablet, 10 MG PO Q8H PRN for NAUSEA/VOMITING-2ND LINE Prescribed by: GLORIA SANDERSON on 12/07/22 0739 Prochlorperazine Maleate (Compazine) 25 Mg Supp.rect, 25 MG RC Q6H PRN for NAUSEA/VOMITING-3RD LINE Prescribed by: GLORIA SANDERSON on 12/07/22 1540 Vitamin E Acetate (Vitamin E) 400 Unit Capsule, 400 UNIT PO DAILY, (Reported) Entered as Reported by: MARIBETH SANTIAGO on 09/17/19 0824 Review of Systems Review of Systems Constitutional: no symptoms reported EENTM: No Symptoms Reported Cardiovascular: No Symptoms Reported Gastrointestinal: Abdominal Pain, Nausea, Vomiting Genitourinary: No Symptoms Reported Musculoskeletal: no symptoms reported Skin: no symptoms reported Past Gfhhkhn-Piaguu-Ueukur Hx Patient Social History Tobacco Use?: No Smoking Status: Never a Smoker Substance use?: No Alcohol Use?: No Pt feels they are or have been: No Immunizations Up To Date Influenza Vaccine Up-to-Date: Yes; Up-to-Date First/Initial COVID19 Vaccinat: Date? Second COVID19 Vaccination Vic: Date? Third COVID19 Vaccination Date: Date? 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 oz. 89.884325wl; 33.00 BMI Method:Stated General Appearance: WD/WN, moderate distress HEENT: PERRL/EOMI Neck: full range of motion Respiratory: chest non-tender, lungs clear, normal breath sounds Cardiovascular: regular rate, rhythm, no edema Gastrointestinal: normal bowel sounds, soft, no organomegaly, tenderness (Left upper quadrant tenderness) Extremities: normal range of motion Back: no CVA tenderness Neurologic/Psychiatric: alert, normal mood/affect, oriented x 3 Skin: normal color Focused Exam Lactate Level 05/18/23 22:05: Lactic Acid Level 1.70 Lactic Acid Level Laboratory Tests Test 05/18/23 22:05 Lactic Acid Level 1.70 MMOL/L (0.50-2.00) Progress/Results/Core Measures Results/Orders Lab Results Laboratory Tests Test 05/18/23 22:05 05/18/23 23:57 Range/Units White Blood Count 13.9 H 4.3-11.0 10^3/uL Red Blood Count 4.73 3.80-5.11 10^6/uL Hemoglobin 13.0 11.5-16.0 g/dL Hematocrit 37 35-52 % Mean Corpuscular Volume 79 L 80-99 fL Mean Corpuscular Hemoglobin 28 25-34 pg Mean Corpuscular Hemoglobin Concent 35 32-36 g/dL Red Cell Distribution Width 14.0 10.0-14.5 % Platelet Count 429 H 130-400 10^3/uL Mean Platelet Volume 10.1 9.0-12.2 fL Immature Granulocyte % (Auto) 0 % Neutrophils (%) (Auto) 70 42-75 % Lymphocytes (%) (Auto) 24 12-44 % Monocytes (%) (Auto) 6 0-12 % Eosinophils (%) (Auto) 0 0-10 % Basophils (%) (Auto) 0 0-10 % Neutrophils # (Auto) 9.7 H 1.8-7.8 10^3/uL Lymphocytes # (Auto) 3.3 1.0-4.0 10^3/uL Monocytes # (Auto) 0.8 0.0-1.0 10^3/uL Eosinophils # (Auto) 0.0 0.0-0.3 10^3/uL Basophils # (Auto) 0.0 0.0-0.1 10^3/uL Immature Granulocyte # (Auto) 0.1 0.0-0.1 10^3/uL Sodium Level 134 L 135-145 MMOL/L Potassium Level 2.9 L 3.6-5.0 MMOL/L Chloride Level 100 98-107 MMOL/L Carbon Dioxide Level 17 L 21-32 MMOL/L Anion Gap 17 H 5-14 MMOL/L Blood Urea Nitrogen 12 7-18 MG/DL Creatinine 0.91 0.60-1.30 MG/DL Estimat Glomerular Filtration Rate 71 BUN/Creatinine Ratio 13 Glucose Level 110 H 70-105 MG/DL Lactic Acid Level 1.70 0.50-2.00 MMOL/L Calcium Level 9.5 8.5-10.1 MG/DL Corrected Calcium 9.1 8.5-10.1 MG/DL Magnesium Level 2.0 1.6-2.4 MG/DL Total Bilirubin 1.4 H 0.1-1.0 MG/DL Aspartate Amino Transf (AST/SGOT) 78 H 5-34 U/L Alanine Aminotransferase (ALT/SGPT) 49 0-55 U/L Alkaline Phosphatase 80 40-136 U/L Troponin I < 0.30 <0.30 NG/ML Total Protein 7.0 6.4-8.2 GM/DL Albumin 4.5 3.2-4.5 GM/DL Lipase 34 8-78 U/L Urine Color YELLOW Urine Clarity CLEAR Urine pH 6.0 5-9 Urine Specific [place] <=1.005 1.016-1.022 Urine Protein NEGATIVE NEGATIVE Urine Glucose (UA) NEGATIVE NEGATIVE Urine Ketones 2+ H NEGATIVE Urine Nitrite NEGATIVE NEGATIVE Urine Bilirubin NEGATIVE NEGATIVE Urine Urobilinogen 0.2 < = 1.0 MG/DL Urine Leukocyte Esterase TRACE H NEGATIVE Urine RBC (Auto) TRACE-I H NEGATIVE Urine RBC NONE /HPF Urine WBC 10-25 H /HPF Urine Squamous Epithelial Cells 5-10 /HPF Urine Crystals NONE /LPF Urine Bacteria FEW H /HPF Urine Casts NONE /LPF Urine Mucus LARGE H /LPF Urine Culture Indicated YES Urine Opiates Screen NEGATIVE NEGATIVE Urine Oxycodone Screen NEGATIVE NEGATIVE Urine Methadone Screen NEGATIVE NEGATIVE Urine Propoxyphene Screen NEGATIVE NEGATIVE Urine Barbiturates Screen NEGATIVE NEGATIVE Ur Tricyclic Antidepressants Screen NEGATIVE NEGATIVE Urine Phencyclidine Screen NEGATIVE NEGATIVE Urine Amphetamines Screen NEGATIVE NEGATIVE Urine Methamphetamines Screen NEGATIVE NEGATIVE Urine Benzodiazepines Screen POSITIVE H NEGATIVE Urine Cocaine Screen NEGATIVE NEGATIVE Urine Cannabinoids Screen POSITIVE H NEGATIVE My Orders Orders - RENÉE STAPLES MD Cbc With Automated Diff (05/18/23 21:52) Comprehensive Metabolic Panel (05/18/23 21:52) Drug Screen Stat (Urine) (05/18/23 21:52) Lactic Acid Analyzer (05/18/23 21:52) Lipase (05/18/23 21:52) Magnesium (05/18/23 21:52) Ua Culture If Indicated (05/18/23 21:52) Troponin I Fs (05/18/23 21:52) Ed Iv/Invasive Line Start (05/18/23 21:52) Ns Iv 1000 Ml (Ns Iv 1000 Ml) (05/18/23 22:00) Fentanyl Injection (Fentanyl Injection (05/18/23 22:00) Ondansetron Injection (Ondansetron Inj (05/18/23 22:00) Ed Iv/Invasive Line Start (05/18/23 21:52) Potassium Cl 10meq/50ml Ivpb (Kcl 10 Meq (05/18/23 23:34) Ns (Ivpb) 100 Ml (Sodium Chloride 0.9% 1 (05/18/23 23:57) Urine Culture (05/18/23 23:57) Ns (Ivpb) 100 Ml (Sodium Chloride 0.9% 1 (05/19/23 00:15) Ceftriaxone Iv/Im (Ceftriaxone Iv/Im) (05/19/23 00:15) Medications Given in ED Current Medications Medications Dose Ordered Sig/Luba Route Start Time Stop Time Status Last Admin Dose Admin Fentanyl Citrate 50 mcg ONCE ONCE IVP 05/18/23 22:00 05/18/23 22:01 DC 05/18/23 22:19 50 MCG Ondansetron HCl 4 mg ONCE ONCE IVP 05/18/23 22:00 05/18/23 22:01 DC 05/18/23 22:19 4 MG Sodium Chloride 100 ml ONCE ONCE IV 05/19/23 00:15 05/19/23 00:16 DC 05/18/23 23:59 100 ML Vital Signs/I&O 05/18/23 21:42 Temp 36.9 Pulse 116 Resp 16 B/P (MAP) 123/67 (85) Pulse Ox 97 O2 Delivery Room Air 05/19/23 00:00 Intake Total 1000 ml Balance 1000 ml Blood Pressure Mean: 85 Progress Progress Note : Progress Note 1. CYCLICAL VOMITING SYNDROME CAUSED BY MARIJUANA: - Bernie Bili: 1.4, AST: 78 - Lipase: 34 - NPO - NS IVF bolus - Fentanyl 50mcg IV STAT -CT report requested and faxed over from [facility] which was done on 05/16/2023: Shows essentially normal CT abdomen pelvis study. No findings explain the patient's symptoms. Normal-appearing pancreas. No evidence of inflammation. Small hiatal hernia. Prior cholecystectomy. The radiologist that signed the CT report done at [facility] is Jacoby Tirado MD. For this reason, a CT abd was not done today at [facility] - UDS is positive for marijuana. -Advised patient stop using marijuana as it is causing cyclical vomiting syndrome -Adequate hydration and nutrition advised -Follow-up with PCP - The patient was seen in the ED, and treated appropriately to presentation at a specific point in time. Patient is informed that there is a possibility that disease and illness can evolve and change in acuity rapidly or slowly after patient is discharged from the ER. Precautionary advice given to the patient for immediate return to ER if symptoms worsen or do not resolve, and to seek emergency care sooner rather than later. Pt also advised on the importance of PCP follow up and compliance with management and follow up plan with PCP and/or specialist, as this is part of the management plan. Pt verbally expressed understanding. 2. HYPOKALEMIA: - CMP: s. K is 2.9 - Potassium 20mEq iv STAT -Prescription given for oral potassium 40 mEq daily for 5 days. -Follow-up with PCP for recheck of potassium level in 7 days 3. ACUTE CYSTITIS WITH HEMATURIA: - UA is positive for leukocyte esterase, WBC, RBC, bacteria - CBC: WBC is 13.9 with a left shift - Ceftriaxone 1gm iv STAT in ER -Prescription given for cefpodoxime 100 mg twice daily for 7 days Departure Impression Primary Impression: Cyclical vomiting syndrome Additional Impressions: Marijuana use Acute cystitis with hematuria Disposition: 01 HOME, SELF-CARE Condition: Improved Departure-Patient Inst. Referrals: SELFMIMA MD (PCP/Family) Primary Care Physician Patient Instructions: Acute Cystitis (DC), Dehydration, Adult (DC), Marijuana, Marijuana Use and Addiction (DC), Nausea and Vomiting, Adult (DC) Add. Discharge Instructions: -Advised patient stop using marijuana as it is causing cyclical vomiting syndro me -Adequate hydration and nutrition advised -Prescription given for oral potassium 40 mEq daily for 5 days. -Follow-up with PCP for recheck of potassium level in 7 days -Prescription given for cefpodoxime 100 mg twice daily for 7 days for UTI All discharge instructions reviewed with patient and/or family. Voiced understanding. Scripts Potassium Chloride (Potassium Chloride) 20 Meq Tablet.er 40 MEQ PO DAILY for 5 Days, #10 TAB Prov: RENÉE STAPLES MD 05/19/23 Cefpodoxime Proxetil (Cefpodoxime Proxetil) 100 Mg Tablet 100 MG PO Q12H for 7 Days, #14 TAB Prov: RENÉE STAPLES MD 05/19/23 RENÉE STAPLES MD May 18, 2023 23:30
[2023-05-18] MEDS ORDERED: POTASSIUM CL 10MEQ/50ML IVPB 50 ML IV STA (23:34)
[2023-05-18] MEDS ORDERED: NS (IVPB) 100 ML 100 ML ONE (23:57)
[2023-05-19] LABS: BILIRUBIN,URINE NEGATIVE (NEGATIVE); CLARITY,URINE CLEAR; COLOR,URINE YELLOW; GLUCOSE, URINE (UA) NEGATIVE (NEGATIVE); KETONES,URINE 2+ (NEGATIVE); LEUKOCYTE ESTERASE ,URINE TRACE (NEGATIVE); NITRITE,URINE NEGATIVE (NEGATIVE); PROTEIN,URINE NEGATIVE (NEGATIVE)
[2023-05-19 00:04] LABS: BACTERIA,URINE FEW /HPF
[2023-05-19 00:11] LABS: AMPHETAMINE SCREEN, URINE NEGATIVE (NEGATIVE); BARBITURATE SCREEN URINE NEGATIVE (NEGATIVE); BENZODIAZEPINES SCREEN URINE POSITIVE (NEGATIVE); CANNABINOID SCREEN, URINE POSITIVE (NEGATIVE); COCAINE SCREEN URINE NEGATIVE (NEGATIVE); METHADONE STAT NEGATIVE (NEGATIVE); OPIATE SCREEN URINE NEGATIVE (NEGATIVE); OXYCODONE STAT NEGATIVE (NEGATIVE); PROPOXYPHENE STAT NEGATIVE (NEGATIVE); TRICYCLIC ANTIDEPRESSANTS SCRE NEGATIVE (NEGATIVE)
[2023-05-19] MEDS ORDERED: NS 100 ML (IVPB) BAG IV ONE (00:15)
[2023-05-19] MEDS ORDERED: cefTRIAXone IV/IM 1,000 MG in NS (IVPB) 50 ML 50 ML IV STA (00:15)
[2023-05-19] MEDS ORDERED: CEFP100T2 PO (01:13)
[2023-05-19] MEDS ORDERED: POTA-330 PO (01:24)
[2023-05-19 01:28] VITALS: BP 126/68
[2023-05-19] MEDS ORDERED: METO5TAB2 PO (15:54)
[2023-05-19] MEDS ORDERED: CLON0.5T4 PO (15:54)
== END 2023-05-19 01:28 | disposition home or self-care (01) ==
LOC: EDUNIT# 21:31 → ER FS 21:34
DX: F12.90 Cannabis use, unspecified, uncomplicated (principal); N30.01 Acute cystitis with hematuria; E87.6 Hypokalemia
CPT/HCPCS: 36415; 80053; 80306; 81000; 83605; 83690; 83735; 84484; 85025; 87088

== ENCOUNTER 2023-05-19 14:03 | Emergency (ER) | payer MEDICARE, OTHER ==
[~2023-05-19 14:03] MED LIST changes: +CEFP100T2 PO; +POTA-330 PO
[2023-05-19] MEDS ORDERED: NS IV 1000 ML 1,000 ML IV STA (14:08)
[2023-05-19] MEDS ORDERED: DroPERidol INJECTION 5 MG/2 ML (ED ONLY!) IV STA (14:08)
--- NOTE | 2023-05-19 14:16 | ED General ---
General Stated Complaint: VOMITING Source of Information: Patient History of Present Illness Date Seen by Provider: May 19, 2023 Time Seen by Provider: 14:03 Initial Comments 63-year-old female presenting with complaints of continued nausea and vomiting. She was seen here last night and discharged home with diagnosis of hyperemesis secondary to marijuana abuse. Adult Caregiver reports that the told him that they smoked marijuana this morning. Patient states it has been a month since she smoked marijuana. She had normal labs and had a recent CT scan done at [place] over the weekend when she had been seen for the same complaints. She was started on an antibiotic and states she did take 1 dose of that. She denies having diarrhea. Timing/Duration: 3-4 Days Modifying Factors: worse with Eating Associated Systoms: No Chest Pain, No Cough, No Diaphoresis, No Fever/Chills; Malaise, Nausea/Vomiting; No Seizure, No Shortness of Air, No Syncope; Weakness Allergies and Home Medications Allergies Coded Allergies: promethazine (Verified Allergy, Unknown, 06/23/19) Patient Home Medication List Home Medication List Reviewed: Yes Alprazolam (Alprazolam) 0.5 Mg Tablet, 0.5 MG PO TID PRN for ANXIETY, (Reported) Entered as Reported by: MARIBETH SANTIAGO on 09/17/19 0847 Cefdinir (Cefdinir) 300 Mg Capsule, 300 MG PO BID Prescribed by: JOHN MERRITT on 09/17/19 1033 Cefpodoxime Proxetil (Cefpodoxime Proxetil) 100 Mg Tablet, 100 MG PO Q12H Prescribed by: RENÉE STAPLES MD on 05/19/23 0113 Cholecalciferol (Vitamin D3) (Vitamin D3) 2,000 Unit Capsule, 2,000 UNIT PO DAILY, (Reported) Entered as Reported by: MARIBETH SANTIAGO on 09/17/19 0847 Citalopram Hydrobromide (Citalopram HBr) 20 Mg Tablet, 20 MG PO DAILY, (Reported ) Entered as Reported by: MARIBETH SANTIAGO on 09/17/19 0847 Clonazepam (Clonazepam) 0.5 Mg Tablet, 0.5 MG PO Q8H PRN for NAUSEA/VOMITING Prescribed by: MINA ALTMAN on 05/19/23 1555 Cyanocobalamin (Vitamin B-12) (Vitamin B-12) 1,000 Mcg Tablet, 1,000 MCG PO DAILY, (Reported) Entered as Reported by: MARIBETH SANTIAGO on 09/17/19 0847 Esomeprazole Magnesium (Nexium) 40 Mg Cap, 40 MG PO BID Prescribed by: AMANDA SMITH on 05/21/22 0249 Lipase/Protease/Amylase (Pancreaze Dr 10,500 Unit Cap) 1 Each Capsule.dr, 1 CAP PO BID, (Reported) Entered as Reported by: MARIBETH SANTIAGO on 09/17/19 0847 Magnesium Oxide (Magnesium) 400 Mg Tablet, 400 MG PO DAILY, (Reported) Entered as Reported by: MARIBETH SANTIAGO on 09/17/19 0847 Metoclopramide HCl (Metoclopramide HCl) 5 Mg Tablet, 5 MG PO Q6H PRN for NAUSEA/VOMITING Prescribed by: MINA ALTMAN on 05/19/23 1554 Ondansetron (Ondansetron Odt) 4 Mg Tab.rapdis, 4 MG PO Q6H PRN for NAUSEA/VOMITING-1ST LINE Prescribed by: MINA ALTMAN on 02/16/21 1126 Ondansetron (Ondansetron Odt) 4 Mg Tab.rapdis, 4 MG PO Q6H Prescribed by: AMANDA SMITH on 05/16/22 2235 Oxycodone HCl (Oxycodone HCl) 5 Mg Tablet, 5 MG PO Q6H PRN for PAIN-SEVERE (8- 10) Prescribed by: GLORIA SANDERSON on 12/07/22 0740 Oxycodone HCl/Acetaminophen (Oxycodone-Acetaminophen 10-325) 1 Each Tablet, 1 TAB PO Q4H PRN for PAIN-MODERATE (5-7), (Reported) Entered as Reported by: MARIBETH SANTIAGO on 09/17/19 0847 Potassium Chloride (Potassium Chloride) 20 Meq Tablet.er, 40 MEQ PO DAILY Prescribed by: RENÉE STAPLES MD on 05/19/23 0124 Prochlorperazine Maleate (Prochlorperazine Maleate) 10 Mg Tablet, 10 MG PO TID PRN for NAUSEA/VOMITING-2ND LINE Prescribed by: MINA ALTMAN on 02/16/21 1126 Prochlorperazine Maleate (Compazine) 10 Mg Tablet, 10 MG PO Q8H PRN for NAUSEA/VOMITING-2ND LINE Prescribed by: GLORIA SANDERSON on 12/07/22 0739 Prochlorperazine Maleate (Compazine) 25 Mg Supp.rect, 25 MG RC Q6H PRN for NAUSEA/VOMITING-3RD LINE Prescribed by: GLORIA SANDERSON on 12/07/22 1540 Vitamin E Acetate (Vitamin E) 400 Unit Capsule, 400 UNIT PO DAILY, (Reported) Entered as Reported by: MARIBETH SANTIAGO on 09/17/19 0847 Review of Systems Review of Systems Constitutional: No chills; dizziness; No fever EENTM: no symptoms reported Respiratory: no symptoms reported Cardiovascular: no symptoms reported Gastrointestinal: see HPI Genitourinary: no symptoms reported Musculoskeletal: no symptoms reported Skin: no symptoms reported Past [id number] Hx Patient Social History Substance use?: Yes Substance type: Marijuana Immunizations Up To Date First/Initial COVID19 Vaccinat: Date? Second COVID19 Vaccination Vic: Date? Third COVID19 Vaccination Date: Date? 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 oz. 89.046241pb; 33.00 BMI Method:Stated General Appearance: Moderate Distress (Patient very dramatically is dry heaving at times), Obese HEENT: PERRL/EOMI, Pharynx Normal Respiratory: Chest Non Tender, Lungs Clear, Normal Breath Sounds, No Accessory Muscle Use, No Respiratory Distress Cardiovascular: Regular Rate, Rhythm, Normal Peripheral Pulses Gastrointestinal: Normal Bowel Sounds, No Pulsatile Mass, Soft; No Distended, No Guarding; Tenderness (Epigastric) Rectal: Deferred Extremity: Normal Capillary Refill, Normal Inspection, No Pedal Edema Neurologic/Psychiatric: Alert, Oriented x3, manager alliance II-XII Norm as Tested Skin: Normal Color, Warm/Dry Progress/Results/Core Measures Suspected Sepsis SIRS Temperature: Pulse: Respiratory Rate: Laboratory Tests 05/19/23 14:21: White Blood Count 13.1H Blood Pressure / Mean: Laboratory Tests 05/19/23 14:21: Creatinine 0.83, Platelet Count 420H, Total Bilirubin 1.4H Results/Orders Lab Results Laboratory Tests Test 05/19/23 14:21 05/19/23 15:20 Range/Units White Blood Count 13.1 H 4.3-11.0 10^3/uL Red Blood Count 4.47 3.80-5.11 10^6/uL Hemoglobin 12.4 11.5-16.0 g/dL Hematocrit 35 35-52 % Mean Corpuscular Volume 79 L 80-99 fL Mean Corpuscular Hemoglobin 28 25-34 pg Mean Corpuscular Hemoglobin Concent 35 32-36 g/dL Red Cell Distribution Width 13.7 10.0-14.5 % Platelet Count 420 H 130-400 10^3/uL Mean Platelet Volume 10.0 9.0-12.2 fL Immature Granulocyte % (Auto) 0 % Neutrophils (%) (Auto) 73 42-75 % Lymphocytes (%) (Auto) 19 12-44 % Monocytes (%) (Auto) 7 0-12 % Eosinophils (%) (Auto) 0 0-10 % Basophils (%) (Auto) 0 0-10 % Neutrophils # (Auto) 9.5 H 1.8-7.8 10^3/uL Lymphocytes # (Auto) 2.5 1.0-4.0 10^3/uL Monocytes # (Auto) 1.0 0.0-1.0 10^3/uL Eosinophils # (Auto) 0.0 0.0-0.3 10^3/uL Basophils # (Auto) 0.0 0.0-0.1 10^3/uL Immature Granulocyte # (Auto) 0.1 0.0-0.1 10^3/uL Sodium Level 135 135-145 MMOL/L Potassium Level 2.8 L 3.6-5.0 MMOL/L Chloride Level 101 98-107 MMOL/L Carbon Dioxide Level 15 L 21-32 MMOL/L Anion Gap 19 H 5-14 MMOL/L Blood Urea Nitrogen 9 7-18 MG/DL Creatinine 0.83 0.60-1.30 MG/DL Estimat Glomerular Filtration Rate 80 BUN/Creatinine Ratio 11 Glucose Level 117 H 70-105 MG/DL Calcium Level 9.2 8.5-10.1 MG/DL Corrected Calcium 9.0 8.5-10.1 MG/DL Total Bilirubin 1.4 H 0.1-1.0 MG/DL Aspartate Amino Transf (AST/SGOT) 72 H 5-34 U/L Alanine Aminotransferase (ALT/SGPT) 58 H 0-55 U/L Alkaline Phosphatase 77 40-136 U/L Total Protein 6.7 6.4-8.2 GM/DL Albumin 4.3 3.2-4.5 GM/DL Lipase 29 8-78 U/L Urine Color YELLOW Urine Clarity CLEAR Urine pH 7.0 5-9 Urine Specific [place] <=1.005 1.016-1.022 Urine Protein NEGATIVE NEGATIVE Urine Glucose (UA) NEGATIVE NEGATIVE Urine Ketones 2+ H NEGATIVE Urine Nitrite NEGATIVE NEGATIVE Urine Bilirubin NEGATIVE NEGATIVE Urine Urobilinogen 0.2 < = 1.0 MG/DL Urine Leukocyte Esterase NEGATIVE NEGATIVE Urine RBC (Auto) NEGATIVE NEGATIVE Urine RBC NONE /HPF Urine WBC 0-2 /HPF Urine Squamous Epithelial Cells 2-5 /HPF Urine Crystals NONE /LPF Urine Bacteria TRACE /HPF Urine Casts NONE /LPF Urine Mucus NEGATIVE /LPF Urine Culture Indicated NO My Orders Orders - MINA ALTMAN MD Comprehensive Metabolic Panel (05/19/23 14:08) Lipase (05/19/23 14:08) Ua Culture If Indicated (05/19/23 14:08) Ed Iv/Invasive Line Start (05/19/23 14:08) Cbc With Automated Diff (05/19/23 14:08) Ns Iv 1000 Ml (Ns Iv 1000 Ml) (05/19/23 14:08) Lorazepam Injection (Lorazepam Injection (05/19/23 14:08) Droperidol Injection (Ed Only) (Droperid (05/19/23 14:08) Vital Signs/I&O 05/19/23 05/19/23 14:03 15:56 Temp 37.1 37.1 Pulse 96 87 Resp 20 16 B/P (MAP) 156/83 (107) 147/76 Pulse Ox 100 100 O2 Delivery Room Air Room Air Capillary Refill : Progress Note #1: Progress Note Differential diagnosis includes medical noncompliance, marijuana abuse, gastritis, gastroenteritis, pancreatitis. We will try to recheck labs to see if there is been any change in the last 12 hours. Administer normal saline 1 L IV fluid bolus for hydration. Droperidol 2.5 mg IV for nausea and vomiting. Ativan 1 mg IV for anxiety and nausea and vomiting. EMS established a peripheral IV in the right foot. Send blood work for complete blood count, comprehensive metabolic profile, lipase. Progress Note #2: Time: 14:32 Progress Note Complete blood count shows mild elevation of the white blood cell count of 13.1 thousand. Hemoglobin stable at 12.4. Platelets of 420. This is essentially unchanged from labs done on May [id number] comprehensive metabolic profile shows continued hypokalemia with potassium of 2.8. Sodium stable at 135. Normal BUN and creatinine of 9 and 0.83. Her glucose was 117. Lipase was in the normal range at 29. Liver enzymes showed mild elevation of the total bilirubin to 1.4 with AST of 72 and ALT of 58. This is again consistent with her recent lab work. No acute significant change in her values. She is more calm after medications in the ED and is not having the dramatic dry heaves that she was exhibiting on arrival. 1534 she is tolerating ice chips by mouth. Her urinalysis obtained after 1 L of NS infused has her specific gravity at 1.005 so it is dilute. She has 2 + k etones to go with her vomiting but no Nitrites, LE, WBC, Bacteria for UTI. Can try adding in Ativan and metoclopramide so she has something else to try for nausea/vomiting at home since she felt the dissolving ondansetron was not helping her. Stressed importance of avoiding marijuana as it was felt to be a trigger for her episodes. When going to prescribe the lorazepam the EMR flagged it as a nonformulary medication that would not be covered but an alternative was clonazepam. Prescribed clonazepam 0.5 mg p.o. every 8 hours as needed nausea and vomiting. Also prescribed metoclopramide 5 mg p.o. every 6 hours as needed nausea vomi ting. Encouraged to do electrolyte drinks and try and increase her potassium. Keep sipping on fluids to help with hydration. Avoid marijuana use or exposure. Departure Impression Primary Impression: Cyclical vomiting syndrome Additional Impressions: Cannabis hyperemesis syndrome concurrent with and due to cannabis abuse Hypokalemia due to excessive gastrointestinal loss of potassium Disposition: 01 HOME, SELF-CARE Condition: Improved Departure-Patient Inst. Decision time for Depature: 15:52 Referrals: SELFMIMA MD (PCP/Family) Primary Care Physician Patient Instructions: Cannabis hyperemesis syndrome, Nausea and Vomiting, Adult ED, Hypokalemia (DC), High Potassium Diet Add. Discharge Instructions: Try electrolyte drinks to help with your hydration and the potassium level. Try using the Metoclopramide and the Lorazepam to help with nausea and vomiting. Avoid using any marijuana as this can trigger episodes of vomiting like this for you. Stick with a liquid diet and electrolyte drinks for 24 to 48 hours before trying to advance to more solid, bland foods. Check with clinic this week for continued symptoms. Scripts Clonazepam (Clonazepam) 0.5 Mg Tablet 0.5 MG PO Q8H PRN for NAUSEA/VOMITING for 3 Days, #9 TAB 0 Refills Prov: MINA ALTMAN MD 05/19/23 Metoclopramide HCl (Metoclopramide HCl) 5 Mg Tablet 5 MG PO Q6H PRN for NAUSEA/VOMITING for 3 Days, #12 TAB 0 Refills Prov: MINA ALTMAN MD 05/19/23 MINA ALTMAN MD May 19, 2023 14:16
[2023-05-19 14:22] LABS: BASOPHILS % (AUTO) 0 % (0-10); EOSINOPHILS % (AUTO) 0 % (0-10); HEMATOCRIT 35 % (35-52); HEMOGLOBIN 12.4 g/dL (11.5-16.0); LYMPHOCYTES # (AUTO) 2.5 10^3/uL (1.0-4.0); LYMPHOCYTES % (AUTO) 19 % (12-44); MEAN CORPUSCULAR HEMOGLOBIN 28 pg (25-34); MEAN CORPUSCULAR HGB CONC 35 g/dL (32-36); MEAN CORPUSCULAR VOLUME 79 fL (80-99); MONOCYTES % (AUTO) 7 % (0-12); NEUTROPHILS # (AUTO) 9.5 10^3/uL (1.8-7.8); NEUTROPHILS % (AUTO) 73 % (42-75); PLATELET COUNT 420 10^3/uL (130-400); WHITE BLOOD COUNT 13.1 10^3/uL (4.3-11.0)
[2023-05-19 14:42] LABS: ALBUMIN 4.3 GM/DL (3.2-4.5); BILIRUBIN,TOTAL 1.4 MG/DL (0.1-1.0); CALCIUM 9.2 MG/DL (8.5-10.1); CREATININE SERUM 0.83 MG/DL (0.60-1.30); POTASSIUM 2.8 MMOL/L (3.6-5.0); TOTAL PROTEIN 6.7 GM/DL (6.4-8.2)
[2023-05-19 15:27] LABS: BILIRUBIN,URINE NEGATIVE (NEGATIVE); CLARITY,URINE CLEAR; COLOR,URINE YELLOW; GLUCOSE, URINE (UA) NEGATIVE (NEGATIVE); KETONES,URINE 2+ (NEGATIVE); LEUKOCYTE ESTERASE ,URINE NEGATIVE (NEGATIVE); NITRITE,URINE NEGATIVE (NEGATIVE); PROTEIN,URINE NEGATIVE (NEGATIVE)
[2023-05-19 15:30] LABS: BACTERIA,URINE TRACE /HPF; WBC,URINE 0-2 /HPF
[2023-05-19] MEDS ORDERED: CLON0.5T4 PO (15:54)
[2023-05-19] MEDS ORDERED: METO5TAB2 PO (15:54)
[2023-05-19 15:56] VITALS: BP 147/76
== END 2023-05-19 15:56 | disposition home or self-care (01) ==
LOC: EDUNIT# 14:03 → ER FS 14:04
DX: R11.15 Cyclical vomiting syndrome unrelated to migraine (principal); R11.2 Nausea with vomiting, unspecified; F12.10 Cannabis abuse, uncomplicated; E87.6 Hypokalemia; F41.9 Anxiety disorder, unspecified; E66.9 Obesity, unspecified; Z68.33 Body mass index [BMI] 33.0-33.9, adult
CPT/HCPCS: 36415; 80053; 81000; 83690; 85025